=== PATIENT | male | born 1975 | race Caucasian/White ===

== ENCOUNTER 2018-08-21 09:45 | Inpatient (IN) | payer MEDICARE, MEDICAID, SELFPAY ==
[2018-08-21] VITALS (11 sets, daily range): BP systolic 115–139; BP diastolic 68–85; PULSE 89–133; RESP 15–31; TEMP 36–39.4; O2SAT 91–98; BMI 31.9; BMI 27.6
[2018-08-21] MEDS: Ipratropium/Albuterol Sulfate 3 ML AMPUL.NEB INHALATION ×2 (10:14→19:10)
--- NOTE | 2018-08-21 10:40 | RAD_ITS ---
STUDY: X-RAY CHEST REASON FOR EXAM: Male, 42 years old. Cough. History of asthma and non-Hodgkin's lymphoma. TECHNIQUE: AP and lateral views of the chest. COMPARISON: Comparison is made with prior chest radiograph dated June 27, 2016. FINDINGS: A left-sided portacatheter is seen. The tip is at the junction of the superior vena cava and left brachiocephalic vein. Surgical clips are seen in the right axillary region. Stable mild elevation of the right hemidiaphragm. The lungs are clear and expanded. There is no demonstrated pleural abnormality. Normal size heart. Normal mediastinum and chu. Normal visualized pulmonary arteries. Normal visualized aortic arch and descending thoracic aorta. Normal visualized thoracic spine. Normal visualized ribs, clavicles, and shoulders. There is no demonstrated abnormality of the visualized soft tissue structures of the upper abdomen. RAD/Chest PA and Lateral IMPRESSION: No acute abnormality is seen. There has been no change as compared to prior study. Electronically Signed: Norbert Guardado MD at 11:19 EST Tel [phone], Service support ,
[2018-08-21] MEDS: Acetaminophen 500 MG Tablet 1000 MG PO (10:41)
--- NOTE | 2018-08-21 11:22 | ED.RN ---
PT AMBULATED WITH PULSE OX, PULSE OX ON ROOM AIR WAS 89%, HEART RATE 155.
--- NOTE | 2018-08-21 12:12 | EKG12_ITS ---
Test Reason : COUGH Blood Pressure : / mmHG Vent. Rate : 099 BPM Atrial Rate : 099 BPM P-R Int : 154 ms QRS Dur : 088 ms QT Int : 348 ms P-R-T Axes : 027 024 003 degrees QTc Int : 446 ms Normal sinus rhythm Nonspecific T wave abnormality Confirmed by SEAN ONEILL, VKIAS ([id number]), commercial production editor GENESIS CONDE ([id number]) on 08/23/2018 2:24:05 PM Referred By: DC Confirmed By:VIKAS ESTRADA MD
--- NOTE | 2018-08-21 12:15 | ED.DCSUM_ITS ---
- ER Visit Summary Date of Service: 08/21/18 Chief Complaint: Cough History of Present Illness: The patient is a 42 M with a cough for 2 days. It is dry. He also reports fever, myalgias, and flulike symptoms. His family member had pneumonia. He has a history of diabetes and hypertension. Remote history of non-Hodgkin's lymphoma. He does use e-cigarettes. Physical Examination: Febrile 102.9. Heart rate 133 and respiratory rate 15. Blood pressure normal. 94% on room air. The patient appears unwell but not toxic or in distress. Alert and oriented. HEENT exam unremarkable. Heart regular. Lungs clear bilaterally. Abdomen soft. Skin appears normal. Test Results: Chest x-ray was unremarkable. Emergency Department Course and Treatment: Patient received a breathing treatment. His flu test was negative. On reevaluation, he is not any better. He is still febrile. Heart rate 102 and respiratory rate 21. He ambulated and was 89% on room air. His heart rate jumped up to 155. I do not believe the patient will be appropriate for outpatient management. I added on blood work, EKG. We will treat with Solu-Medrol. He is requiring nasal cannula oxygen. Will speak with the hospitalist for admission. White count 16.5. Potassium 3.4 and glucose 344. Troponin normal. Lactate pending. Treatment Plan: As above Disposition: Admission Impression: 1. Bronchitis 2. Hypoxia This note was generated with [employer] dictation software. It may contain incorrect words, spelling, and punctuation that were not noted in review of the chart prior to signing ED Disposition - Plan for ED Patient: Chief Complaint: Cough Referrals: Dagoberto Zarco DO [Primary Care Provider] -
[2018-08-21] MEDS: 0.9% Normal Saline 1,000 ML 999 ML IV ×2 (12:22→14:28)
[2018-08-21] MEDS: MethylPREDNISolone 125 MG/2 ML Vial IV (12:22)
[2018-08-21 12:29] LABS: Absolute Lymphocyte Count 1.41 X10^3/ul (0.83-4.51); Absolute Neutrophil Count 13.7 X10^3/uL (2.0-7.7); Basophil# 0.03 X10^3/uL; Basophil% 0.2 % (0-1); Eosinophil# 0.01 X10^3/uL; Eosinophils% 0.1 % (0-5); Hematocrit 44.4 % (40-54); Lymphocyte # 1.41 X10^3/ul (4.0); Lymphocyte % 8.6 % (19-41); Mean Corp Hgb Conc 33.8 g/gl (32-36); Mean Corpuscular Hgb 28.7 pg (27.0-32.0); Mean Corpuscular Volume 85.1 fL (80-94); Mean Platelet Vol. 11.2 fl (6.2-12.0); Monocyte# 1.28 X10^3/uL; Monocyte% 7.8 % (0-10); Neutrophil % 83.1 % (47-70); Platelet Count 226 K/mm3 (150-450); RBC Distribution Width CV 12.9 % (11.6-14.6); RBC Distribution Width SD 40.4 fl (35.1-43.9); Red Blood Count 5.22 M/mm3 (4.6-6.2); White Blood Count 16.5 K/mm3 (4.4-11.0)
[2018-08-21 12:30] LABS: POSITIVE COUNT NO; POSITIVE DIFFERENTIAL NO; POSITIVE MORPHOLOGY NO
[2018-08-21 12:31] LABS: Bedside Glucose 335 mg/dL (70-110)
[2018-08-21 12:43] LABS: Anion Gap 13 (5-15); BUN 12 mg/dL (7-18); BUN/Creat Ratio 9.4 RATIO (10-20); Calcium,Total 8.9 mg/dL (8.5-10.1); Chloride 99 mmol/L (98-107); Creatinine, Serum 1.27 mg/dL (0.70-1.30); EST Glomerular Filtration Rate 66 mL/min (>60); Est Glom Filt Rate - Afr Amer 80 mL/min (>60); Estimated Creatinine Clearance 75.77 ml/min; Glucose 344 mg/dL (74-106); Potassium 3.4 mmol/L (3.5-5.1); Sodium Level 136 mmol/L (136-145)
--- NOTE | 2018-08-21 13:22 | PCM.HP.STD ---
Problem List (1) Anxiety Status: Chronic (2) Depression Status: Chronic (3) Asthma Status: Chronic (4) Type 2 diabetes mellitus Status: Chronic (5) History of follicular lymphoma Status: Chronic History of Present Illness Date of Admission: 08/21/18 Chief Complaint: Body aches, malaise, cough, subjective fever and shortness of breath. The patient is a 42 year old M with past medical history as mentioned above presented to the emergency room because of body aches, cough and shortness of breath. His symptoms started 2 days ago with cough with minimal sputum, associated with mild shortness of breath upon ambulation as well as sore throat, body aches and muscle aches and also, he reported subjective fever. He mentioned that his father was was discharged from the hospital last week and he was admitted for pneumonia. He reported diarrhea last night, 3 times, loose stool without blood. He denied abdominal pain, nausea or vomiting. He denies urinary symptoms. He had a history of type 2 diabetes mellitus and according to the patient, his sugar has been in the 300-400 range for a long time and it is seemed to be uncontrolled. He had a history of stage IV follicular lymphoma/non-Hodgkin's lymphoma diagnosed back in February,, status post chemotherapy and he is in remission. History of anxiety and depression, has been on clonazepam and remain out for a long time. In the emergency vomit, patient was febrile, tachycardic, blood pressure was stable, pulse ox was 91% on room air. His routine blood work was remarkable for leukocytosis, potassium of 3.4 and blood glucose of 344. His EKG revealed sinus tachycardia, normal NM interval, normal QRS, no evidence of ischemic changes or cardiac arrhythmias. Troponin was negative. Lactic acid was 2.1. Chest x-ray showed no acute infiltrate, consolidation or effusion. He is being admitted for sepsis probably secondary to viral bronchitis, complicated by hypoxia and also he has type 2 diabetes mellitus which seems to be uncontrolled. Past Medical History Past Medical History (Chronic Problems): Chronic Problems (Last Reviewed 06/13/18 @ 13:03 by Hattie Simeon) Anxiety (Chronic) Depression (Chronic) Asthma (Chronic) Type 2 diabetes mellitus (Chronic) History of follicular lymphoma (Chronic) Medical History: Medical History (Last Reviewed 06/13/18 @ 13:03 by Hattie Simeon) Anxiety F41.9 Arthritis M19.90 Depression F32.9 Diabetes mellitus E11.9 Follicular lymphoma C82.90 Headache R51 Hearing problem H91.90 Hyperlipidemia E78.5 Kidney stones N20.0 Right axilla lymph node removal Sleep apnea G47.30 Hypertension I10 Allergies No Known Allergies Allergy (Verified 08/21/18 09:45) Home Medications: Ambulatory Orders Medication Instructions Recorded Clonazepam 0.5 mg PO BID PRN 08/21/18 Mirtazapine [Remeron] 15 mg PO QHS 08/21/18 glyBURIDE [Micronase] 10 mg PO DAILY@0800 08/21/18 Surgical History: Surgical History (Last Reviewed 06/13/18 @ 13:03 by Hattie Simeon) History of lithotripsy Z98.890 Surgical History: no surgical history Psychiatric History: No pertinent psych hx Lives: Spouse/ Significant Other Smoking Status: Current every day smoker Tobacco Use: - - He smokes electric cigarettes. Alcohol: Rare Drugs: None - *Family History Maternal Family History: Family History (Last Reviewed 06/13/18 @ 13:03 by Hattie Simeon) Mother Heart disease Hypertension Asthma Arthritis Father Prostate cancer Hypertension Hyperlipidemia Diabetes COPD (chronic obstructive pulmonary disease) Asthma Arthritis Review of Systems Constitutional: Reports: Anorexia, Fever, Malaise, Weakness. Denies: Chills Eyes: Denies: Blurred vision, Double vision, Drainage, Redness HEENT: Reports: Nasal Congestion, Sore Throat. Denies: Difficulty Hearing, Ear Pain, Eye Pain Cardiovascular: Denies: Chest Pain, Chest Pressure, Chest Tightness, Light Headedness, Syncope Respiratory: Reports: Cough, Shortness of breath at rest, Wheezing. Denies: Pleuritic Pain Gastrointestinal: Reports: Diarrhea. Denies: Abdominal Pain, Constipation, Nausea, Vomiting Genitourinary: Denies: Dysuria, Frequency, Hematuria Musculoskeletal: Denies: Arm Pain, Back Pain, Foot Pain Skin: Denies: Dryness, Rash Neurological: Denies: Balance problems, Double vision, Change in Speech, Slurred speech, Confusion, Headaches, Incoordination, Numbness Psychiatric: Reports: Anxiety, Depression Endocrine: Denies: Change in Body Habitus, Polydipsia VTE Information - Inpt Only VTE Present on Admission: No VTE Mechan Device Prophylaxis: None VTE Pharm Prophylaxis ordered?: No - Physical Exam General: Alert, Oriented x3, Cooperative, No apparent distress HEENT: Atraumatic, PERRLA, EOMI, Normocephalic Oral: Moist Mucosa, No Gingival or Mucosal Lesions/ Ulcerations Neck: Supple, No JVD, Negative Carotid Bruits, Trachea Midline, Thyroid Normal Size and Texture Lungs: No wheeze, No rales, Diminished, Rhonchi, Short of Breath, - - Decreased breath sounds bilateral, scattered rhonchi. Cardiovascular: Regular rate, Regular Rhythm, Normal S1, Normal S2, No murmurs, PMI Normal, Tachycardic Abdomen: Bowel Sounds Present, Soft, Non Tender, Non-Distended, No Hepato-splenomegaly Extremities: No clubbing, No cyanosis, No edema Skin: No rashes, No breakdown Lymphatic: No Cervical, Supraclavicular, or Inguinal Adenopathy Neurological: Cranial nerves II-XII grossly intact, Motor Exam 5/5 strength throughout Psych/Mental Status: Normal Affect, Appropriate, Alert and oriented to time, place, person, mood and affect Vital Signs Temp Pulse Resp BP Pulse Ox 98.9 F 110 H 23 H 115/84 H 95 08/21/18 13:16 08/21/18 13:16 08/21/18 13:16 08/21/18 13:16 08/21/18 13:16 Oxygen Flow Rate (L/min) 2 Oxygen Delivery Method Nasal Cannula Weight: 216 lb 4.375 oz Body Mass Index (BMI) 31.9 Finger Stick Blood Glucose 335 Microbiology Past 72 Hours 08/21/18 10:15 Influenza Types A,B Direct FA (JULY) - Final Mucosa - Nose Laboratory Tests Past 24 Hrs 08/21/18 08/21/18 08/21/18 10:10 10:10 10:10 WBC 16.5 H RBC 5.22 Hgb 15.0 Hct 44.4 MCV 85.1 MCH 28.7 MCHC 33.8 RDW 12.9 RDW Differential 40.4 Plt Count 226 MPV 11.2 Immature Gran % (Auto) 0.200 Neut % (Auto) 83.1 H Lymph % (Auto) 8.6 L [place] % (Auto) 7.8 Eos % (Auto) 0.1 Baso % (Auto) 0.2 Absolute Neuts (auto) 13.7 H Absolute Lymphs (auto) 1.41 Total Counted Not Reportable Sodium 136 Potassium 3.4 L Chloride 99 Carbon Dioxide 24.0 Anion Gap 13 BUN 12 Creatinine 1.27 Estim Creat Clear Calc 75.77 Est GFR (MDRD) Af Amer 80 Est GFR (MDRD) Non-Af 66 BUN/Creatinine Ratio 9.4 L Glucose 344 H Lactic Acid Pending Calcium 8.9 Troponin I < 0.015 POC Glucose 08/21/18 10:58 POC Glucose 335 H Clinical Impression(s) from Imaging Studies Chest X-Ray 08/21/18 10:40 IMPRESSION: No acute abnormality is seen. There has been no change as compared to prior study. Electronically Signed: Norbert Guardado MD at 11:19 EST Tel [phone], Service support , Assessment/Plan This is a 42 years old male patient presented to the emergency room because of 2 days history of body aches, cough, shortness of breath, sore throat and subjective fever, found to have sepsis likely due to viral bronchitis, complicated by hypoxia, also found to have mild hypokalemia and he has history of type 2 diabetes mellitus which is uncontrolled. #1 sepsis/viral bronchitis: Chest x-ray reviewed, no acute infiltrate. Patient is febrile, tachycardic and hypoxic, lactic acid 2.1. EKG reviewed, revealed no acute ischemic findings. He received 1 dose of IV doxycycline in the ER. Plan: Admit to [facility] floor, IV fluids, decongestants, bronchodilators, respiratory panel for viruses, pneumococcal and Legionella antigen, blood culture, sputum culture, urine culture, repeat chest x-ray tomorrow morning, incentive spirometer. At this time, no indication to continue IV antibiotics. His symptoms are likely due to viral infection. #2 hypoxia: Secondary to above mentioned history of asthma. He does have a history of childhood asthma. In the ED, pulse ox was 91% on room air, patient was mildly dyspneic and tachypneic. Plan as above, bronchodilators, incentive spirometer, ambulate. #3 mild hypokalemia: Replace potassium with oral potassium chloride, repeat BMP tomorrow morning. #4 type 2 diabetes mellitus, uncontrolled: Patient reports that his sugar has been in the range of 300-400 and that she will for him. Admission glucose is 344. Plan: Accu-Cheks every 6 hours, sliding scale, hemoglobin A1c, continue glyburide. #5 history of stage IV follicular lymphoma/non-Hodgkin's lymphoma: Status post chemotherapy, this was diagnosed back in February,, in remission. He has been following up with Dr. Gallagher as outpatient. #6 asthma: DuoNeb every 6 hours, albuterol as needed, incentive spirometer, decongestants, oxygen by nasal cannula to keep O2 saturation more than 92%. #7 anxiety/depression: Continue clonazepam and Remeron. #8 DVT prophylaxis: Low-risk patient, no prophylaxis indicated, ambulate. This note was generated with [employer] dictation software. It may contain incorrect words, spelling, and punctuation that were not noted in checking the note before signing. Code Visit Inpatient E&M: 79344 Init Hosp L3
[2018-08-21 13:32] LABS: Lactic Acid 2.1 mmol/L (0.4-2.0)
[2018-08-21] MEDS: 0.9% Normal Saline 1,000 ML 100 ML IV (14:28)
[2018-08-21 14:52] LABS: Hemoglobin A1c 11.1 % (4.2-6.3)
[2018-08-21 15:30] LABS: Bedside Glucose 317 mg/dL (70-110)
[2018-08-21 15:57] LABS: Bacteria 0 SEEN /hpf (None Seen); Mucous, Urine 0 SEEN /hpf (<or=2+); Squamous Epithelial Cells - UA 0 SEEN /hpf (0-5); White Blood Cells 0 SEEN /hpf (0-5)
[2018-08-21] MEDS: Insulin Lispro 100 UNIT/ML INSULN.PEN SC ×2 (15:57→23:40)
[2018-08-21 16:25] LABS: Lactic Acid 1.5 mmol/L (0.4-2.0)
[2018-08-21 16:28] LABS: Color, Urine Yellow (Yellow); Glucose, Dipstick 1000 mg/dl (Normal); Leukocyte Esterase-Dipstick Negative /ul (Negative); Nitrite-Dipstick Negative (Negative); Occult Blood-Urine 150 /ul (Negative); Protein-Dipstick 30 mg/dl (Negative); Specific Gravity, Urine 1.015 (1.002-1.030); Urine Bilirubin Dipstick Negative (Negative); Urine Clarity Clear (Clear); Urine Urobilinogen Normal (Normal)
[2018-08-21 16:30] LABS: Ketone-Dipstick 150 mg/dl (Negative)
[2018-08-21 16:50] LABS: Red Blood Cells-Urine 0-5 SEEN /hpf (0-5)
[2018-08-21 17:01] LABS: Reflex Lactate? Y
[2018-08-21] MEDS: Glucerna Shake 120 ML LIQUID PO ×2 (17:50→21:12)
[2018-08-21 17:59] LABS: Lactic Acid 1.4 mmol/L (0.4-2.0)
[2018-08-21] MEDS: Mirtazapine 15 MG Tablet PO (21:11)
[2018-08-21 21:25] LABS: Bedside Glucose 477 mg/dL (70-110)
[2018-08-21 23:41] LABS: Bedside Glucose 411 mg/dL (70-110)
[2018-08-21] MEDS: clonazePAM 0.5 MG Tablet PO (23:41)
[2018-08-22] VITALS (12 sets, daily range): BP systolic 97–122; BP diastolic 53–72; PULSE 80–112; RESP 14–20; TEMP 36.4–36.9; O2SAT 89–97
[2018-08-22] MEDS: Ipratropium/Albuterol Sulfate 3 ML AMPUL.NEB INHALATION ×4 (01:08→19:05)
[2018-08-22] MEDS: 0.9% Normal Saline 1,000 ML 100 ML IV (02:30)
--- NOTE | 2018-08-22 05:55 | RAD_ITS ---
STUDY: X-RAY CHEST REASON FOR EXAM: Male, 42 years old. Cough. TECHNIQUE: PA and lateral views of the chest. COMPARISON: Comparison is made with prior study dated August 21, 2018. FINDINGS: Surgical clips are seen in the right axillary region. A left-sided portacatheter is seen with the tip at the junction of the superior vena cava and left brachiocephalic vein. Stable elevation of the right hemidiaphragm. There is no demonstrated pleural abnormality. Normal size heart. Normal mediastinum and chu. Normal visualized pulmonary arteries. Normal visualized aortic arch and descending thoracic aorta. There are degenerative changes of the visualized thoracic spine. Normal visualized ribs, clavicles, and shoulders. There is no demonstrated abnormality of the visualized soft tissue structures of the upper abdomen. RAD/Chest PA and Lateral IMPRESSION: Stable examination. Electronically Signed: Norbert Guardado MD at 10:42 EST Tel [phone], Service support ,
[2018-08-22] MEDS: Insulin Lispro 100 UNIT/ML INSULN.PEN SC ×4 (06:08→21:55)
[2018-08-22 06:25] LABS: Anion Gap 17 (5-15); BUN 17 mg/dL (7-18); BUN/Creat Ratio 16.3 RATIO (10-20); Calcium,Total 9.1 mg/dL (8.5-10.1); Chloride 106 mmol/L (98-107); Creatinine, Serum 1.04 mg/dL (0.70-1.30); EST Glomerular Filtration Rate 83 mL/min (>60); Est Glom Filt Rate - Afr Amer 100 mL/min (>60); Estimated Creatinine Clearance 92.53 ml/min; Glucose 330 mg/dL (74-106); Potassium 5.1 mmol/L (3.5-5.1); Sodium Level 138 mmol/L (136-145)
[2018-08-22 06:35] LABS: Bedside Glucose 322 mg/dL (70-110)
[2018-08-22 07:15] LABS: Absolute Lymphocyte Count 1.05 X10^3/ul (0.83-4.51); Absolute Neutrophil Count 12.2 X10^3/uL (2.0-7.7); Basophil# 0.01 X10^3/uL; Basophil% 0.1 % (0-1); Hemoglobin 13.5 g/dl (13.0-16.5); Lymphocyte # 1.05 X10^3/ul (4.0); Lymphocyte % 7.5 % (19-41); Mean Corp Hgb Conc 32.9 g/gl (32-36); Mean Corpuscular Hgb 28.8 pg (27.0-32.0); Mean Corpuscular Volume 87.4 fL (80-94); Mean Platelet Vol. 11.4 fl (6.2-12.0); Neutrophil # 12.23 X10^3/uL (2.7-7.7); Neutrophil % 87.2 % (47-70); Platelet Count 210 K/mm3 (150-450); RBC Distribution Width CV 13.1 % (11.6-14.6); RBC Distribution Width SD 41.6 fl (35.1-43.9); Red Blood Count 4.69 M/mm3 (4.6-6.2)
[2018-08-22 07:20] LABS: POSITIVE COUNT NO; POSITIVE DIFFERENTIAL NO; POSITIVE MORPHOLOGY NO
[2018-08-22] MEDS: Glucerna Shake 120 ML LIQUID PO ×4 (08:37→21:55)
--- NOTE | 2018-08-22 09:09 | PCM.PROGNOTE ---
Subjective: Chief complaint: Follow-up after admission for sepsis secondary to viral bronchitis, found to have hypoxia and mild hypokalemia. Patient seen and examined. No acute events overnight. He reported improvement of his shortness of breath, still having dry cough. He has no fever overnight. He has no more diarrhea. Heart rate has been around 100, blood pressure stable, pulse ox is 97% on 2 L. - Physical Exam General: Alert, Oriented x3, Cooperative, No apparent distress HEENT: Atraumatic, PERRLA, EOMI, Normocephalic Oral: Moist Mucosa, No Gingival or Mucosal Lesions/ Ulcerations Neck: Supple, No JVD, Negative Carotid Bruits, Trachea Midline, Thyroid Normal Size and Texture Lungs: Clear to auscultation, No rhonchi, No wheeze, No rales, Diminished Cardiovascular: Regular rate, Regular Rhythm, Normal S1, Normal S2, PMI Normal, Tachycardic Abdomen: Bowel Sounds Present, Soft, Non Tender, Non-Distended, No Hepato-splenomegaly Extremities: No clubbing, No cyanosis, No edema Skin: No rashes, No breakdown Lymphatic: No Cervical, Supraclavicular, or Inguinal Adenopathy Neurological: Cranial nerves II-XII grossly intact, Neuro grossly intact Psych/Mental Status: Normal Affect, Appropriate, Alert and oriented to time, place, person, mood and affect Vital Signs Temp Pulse Resp BP Pulse Ox 97.5 F L 112 H 18 122/72 H 95 08/22/18 03:34 08/22/18 08:00 08/22/18 07:25 08/22/18 03:34 08/22/18 07:25 Oxygen Flow Rate (L/min) 2 Oxygen Delivery Method Nasal Cannula Weight: 187 lb 2.759 oz Body Mass Index (BMI) 27.6 Finger Stick Blood Glucose 335 Intake and Output for Last 24 Hours 08/20/18 08/21/18 08/22/18 23:59 23:59 23:59 Intake Total 1824 / 1824 2079 Output Total 650 / 650 Balance 1174 / 1174 2079 Microbiology Past 72 Hours 08/21/18 17:55 Gram Stain - Final Sputum, Expectorated/Coughed 08/21/18 17:55 C. difficile DNA Amplification - Final Stool 08/21/18 15:50 Streptococcus pneumoniae Antigen (M - Final Urine, Clean Catch 08/21/18 15:50 Legionella Antigen - Final Urine, Clean Catch 08/21/18 10:15 Influenza Types A,B Direct FA (JULY) - Final Mucosa - Nose Laboratory Tests Past 24 Hrs 08/21/18 08/21/18 08/21/18 10:10 10:10 10:10 WBC 16.5 H RBC 5.22 Hgb 15.0 Hct 44.4 MCV 85.1 MCH 28.7 MCHC 33.8 RDW 12.9 RDW Differential 40.4 Plt Count 226 MPV 11.2 Immature Gran % (Auto) 0.200 Neut % (Auto) 83.1 H Lymph % (Auto) 8.6 L [place] % (Auto) 7.8 Eos % (Auto) 0.1 Baso % (Auto) 0.2 Absolute Neuts (auto) 13.7 H Absolute Lymphs (auto) 1.41 Total Counted Not Reportable Sodium 136 Potassium 3.4 L Chloride 99 Carbon Dioxide 24.0 Anion Gap 13 BUN 12 Creatinine 1.27 Estim Creat Clear Calc 75.77 Est GFR (MDRD) Af Amer 80 Est GFR (MDRD) Non-Af 66 BUN/Creatinine Ratio 9.4 L Glucose 344 H Hemoglobin A1c Lactic Acid 2.1 H Calcium 8.9 Troponin I < 0.015 Urine Color Urine Clarity Urine pH Ur Specific [place] Urine Protein Urine Glucose (UA) Urine Ketones Urine Occult Blood Urine Nitrite Urine Bilirubin Urine Urobilinogen Ur Leukocyte Esterase Urine RBC Urine WBC Ur Squamous Epith Cells Urine Bacteria Urine Mucus 08/21/18 08/21/18 08/21/18 10:10 15:45 15:50 WBC RBC Hgb Hct MCV MCH MCHC RDW RDW Differential Plt Count MPV Immature Gran % (Auto) Neut % (Auto) Lymph % (Auto) [place] % (Auto) Eos % (Auto) Baso % (Auto) Absolute Neuts (auto) Absolute Lymphs (auto) Total Counted Sodium Potassium Chloride Carbon Dioxide Anion Gap BUN Creatinine Estim Creat Clear Calc Est GFR (MDRD) Af Amer Est GFR (MDRD) Non-Af BUN/Creatinine Ratio Glucose Hemoglobin A1c 11.1 H Lactic Acid 1.5 Calcium Troponin I Urine Color Yellow Urine Clarity Clear Urine pH 6.0 Ur Specific [place] 1.015 Urine Protein 30 H Urine Glucose (UA) 1000 H Urine Ketones 150 H Urine Occult Blood 150 H Urine Nitrite Negative Urine Bilirubin Negative Urine Urobilinogen Normal Ur Leukocyte Esterase Negative Urine RBC 0-5 SEEN Urine WBC 0 SEEN Ur Squamous Epith Cells 0 SEEN Urine Bacteria 0 SEEN Urine Mucus 0 SEEN 08/21/18 08/22/18 08/22/18 17:21 05:30 05:30 WBC 14.0 H RBC 4.69 Hgb 13.5 Hct 41.0 MCV 87.4 MCH 28.8 MCHC 32.9 RDW 13.1 RDW Differential 41.6 Plt Count 210 MPV 11.4 Immature Gran % (Auto) 0.200 Neut % (Auto) 87.2 H Lymph % (Auto) 7.5 L [place] % (Auto) 5.0 Eos % (Auto) 0.0 Baso % (Auto) 0.1 Absolute Neuts (auto) 12.2 H Absolute Lymphs (auto) 1.05 Total Counted Not Reportable Sodium 138 Potassium 5.1 Chloride 106 Carbon Dioxide 15.0 L Anion Gap 17 H BUN 17 Creatinine 1.04 Estim Creat Clear Calc 92.53 Est GFR (MDRD) Af Amer 100 Est GFR (MDRD) Non-Af 83 BUN/Creatinine Ratio 16.3 Glucose 330 H Hemoglobin A1c Lactic Acid 1.4 Calcium 9.1 Troponin I Urine Color Urine Clarity Urine pH Ur Specific [place] Urine Protein Urine Glucose (UA) Urine Ketones Urine Occult Blood Urine Nitrite Urine Bilirubin Urine Urobilinogen Ur Leukocyte Esterase Urine RBC Urine WBC Ur Squamous Epith Cells Urine Bacteria Urine Mucus POC Glucose 08/22/18 08/21/18 08/21/18 06:08 23:27 21:15 POC Glucose 322 H 411 H 477 H* 08/21/18 08/21/18 15:24 10:58 POC Glucose 317 H 335 H Medical Necessity - Tobacco Use Smoking Status: Current every day smoker Tobacco Use: - Assessment/Plan This is a 42 years old male patient presented to the emergency room because of 2 days history of body aches, cough, shortness of breath, sore throat and subjective fever, found to have sepsis likely due to viral bronchitis, complicated by hypoxia, also found to have mild hypokalemia and he has history of type 2 diabetes mellitus which is uncontrolled. #1 sepsis/viral bronchitis: He is on IV fluids, analgesics and bronchodilators. Symptoms improved, remained afebrile overnight. Repeat chest x-ray showed no acute infiltrate, consolidation or effusion, pending official report. His white blood cell count is trending down, lactic acid is back to normal. Blood, urine and sputum cultures are pending. Nasal swab for influenza a and B were negative. Pneumococcal and Legionella antigen were negative. Respiratory panel for viruses is pending. Stool for C. difficile negative for C. difficile. Plan: Continue same treatment, awaiting respiratory panel for viruses and chest x-ray report, DC IV fluids, ambulate, encourage incentive spirometer, wean off oxygen as tolerated, anticipate discharge home tomorrow. #2 hypoxia: Secondary to above. He does have a history of childhood asthma. Today, symptoms improved, pulse ox is 97% on 2 L. Plan as above. #3 mild hypokalemia: Potassium replaced and corrected. #4 type 2 diabetes mellitus, uncontrolled: Blood sugar is uncontrolled, has been in the range of 300-400. Hemoglobin A1c is 11.1. Plan: Start Lantus insulin daily, continue glyburide, diabetic education. Patient will need to go on insulin because of uncontrolled diabetes. #5 history of stage IV follicular lymphoma/non-Hodgkin's lymphoma: Status post chemotherapy, this was diagnosed back in February,, in remission. He has been following up with Dr. Gallagher as outpatient. #6 asthma: Plan as above, symptoms are improving. Wean off oxygen as tolerated. #7 anxiety/depression: Continue clonazepam and Remeron. #8 DVT prophylaxis: Low-risk patient, no prophylaxis indicated, ambulate. This note was generated with [employer] dictation software. It may contain incorrect words, spelling, and punctuation that were not noted in checking the note before signing. Code Visit Inpatient E&M: 47439 Subs Hosp L2
--- NOTE | 2018-08-22 10:50 | CASEMGMT ---
KARO KERNS Assessment Note Presentation: body aches, shortness of breath. Sepsis, Viral bronchitis. Hx of diabetes, HA1C 11.1, will have diabetic teaching. PCP: Dr. Dagoberto Zarco [facility] Prescription coverage: Yes LNOK: Father, Shon Escobedo; pt has sig other, Betty Campos Living Arrangements: Lives independently with S.O. States he does not need assistance with ADL's. Pt drives, or S.O. drives. -spoke with pt re: diabetic management. Pt states he has BS machine but is not consistent with daily BS checks. Sees Dr. Zarco for diabetic mgmt. RN CM reinforced importance of diabetic management and f/u with physician on regular basis. Pt does not have keno writer. KARO KERNS let pt know Corina is [employer] BUILDER @ [facility]. Pt states he only wishes to see Dr. Zarco for now. Denies need for any supplies on dc, states supplies are covered. Pt is receiving diabetic teaching and international trade analyst following pt in hospital. DME: none. DC PLAN: Home with f/u with PCP. Sharri HOOVERN RN ACM
[2018-08-22 11:31] LABS: Bedside Glucose 394 mg/dL (70-110)
[2018-08-22 16:50] LABS: Bedside Glucose 347 mg/dL (70-110)
[2018-08-22] MEDS: Acetaminophen 325 MG Tablet 650 MG PO (20:16)
[2018-08-22] MEDS: Mirtazapine 15 MG Tablet PO (21:55)
[2018-08-22] MEDS: clonazePAM 0.5 MG Tablet PO (21:55)
[2018-08-22 21:58] LABS: Bedside Glucose 345 mg/dL (70-110)
[2018-08-23 01:30] VITALS: PULSE 85; RESP 18
[2018-08-23] MEDS: Ipratropium/Albuterol Sulfate 3 ML AMPUL.NEB INHALATION ×2 (01:30→06:55)
[2018-08-23 03:30] VITALS: BP 102/62; PULSE 84; RESP 16; TEMP 37; O2SAT 96
--- NOTE | 2018-08-23 04:01 | NURSING ---
called resp therapy for breathing tx and assistance with flutter valve per pt request. see times of breathing treatments. lungs are clear throughout.
[2018-08-23] MEDS: Albuterol 2.5 MG/3 ML VIAL.NEB. INHALATION (04:46)
[2018-08-23 04:48] VITALS: PULSE 85; RESP 18
[2018-08-23] MEDS: Insulin Lispro 100 UNIT/ML INSULN.PEN SC ×2 (06:32→11:32)
[2018-08-23 06:51] LABS: Absolute Lymphocyte Count 2.07 X10^3/ul (0.83-4.51); Absolute Neutrophil Count 7.9 X10^3/uL (2.0-7.7); Basophil# 0.02 X10^3/uL; Basophil% 0.2 % (0-1); Eosinophil# 0.04 X10^3/uL; Eosinophils% 0.4 % (0-5); Hematocrit 38.9 % (40-54); Hemoglobin 12.7 g/dl (13.0-16.5); Lymphocyte # 2.07 X10^3/ul (4.0); Lymphocyte % 19.1 % (19-41); Mean Corp Hgb Conc 32.6 g/gl (32-36); Mean Corpuscular Hgb 28.3 pg (27.0-32.0); Mean Corpuscular Volume 86.8 fL (80-94); Mean Platelet Vol. 11.2 fl (6.2-12.0); Monocyte# 0.77 X10^3/uL; Monocyte% 7.1 % (0-10); Neutrophil # 7.89 X10^3/uL (2.7-7.7); Platelet Count 213 K/mm3 (150-450); RBC Distribution Width CV 13.3 % (11.6-14.6); RBC Distribution Width SD 42.6 fl (35.1-43.9); Red Blood Count 4.48 M/mm3 (4.6-6.2); White Blood Count 10.8 K/mm3 (4.4-11.0)
[2018-08-23 06:52] LABS: POSITIVE COUNT NO; POSITIVE DIFFERENTIAL NO; POSITIVE MORPHOLOGY NO
[2018-08-23 06:55] VITALS: PULSE 82; RESP 18; O2SAT 93
[2018-08-23 06:56] LABS: Bedside Glucose 294 mg/dL (70-110)
[2018-08-23 09:30] VITALS: BP 125/78; PULSE 100; RESP 16; TEMP 37.1; O2SAT 98
--- NOTE | 2018-08-23 09:30 | DCINST_ITS ---
- Discharge Diagnoses Current Active Problems: Current Active and Chronic Problems (Last Reviewed 06/13/18 @ 13:03 by Hattie Simeon) Anxiety (Chronic) Depression (Chronic) Asthma (Chronic) Type 2 diabetes mellitus (Chronic) You will use the following diet at home:: Calorie/Carbohydrate Controlled (specify 1200, 1400, etc) - 1800 ananda Your food should be the consistency of: Regular Discharge Activity: Return to Normal Activity Weight Bearing Status: Full weight bearing Call your doctor if you observe: Fever of 101 or Higher, Shortness of breath, Dizziness, Fainting spells, Chest pain, Increased palpitations (irregular heartbeat), Uncontrolled pain Instructions: Hypoglycemia (Low Blood Sugar), Hyperglycemia (High Blood Sugar), Using Injected Insulin, Using a Blood Sugar Log, How to Check Your Blood Sugar Allergies/Adverse Reactions: Allergies No Known Allergies Allergy (Verified 08/21/18 09:45) Medications to take at Discharge Clonazepam 0.5 mg PO BID PRN 08/21/18 Mirtazapine [Remeron] 15 mg PO QHS 08/21/18 Oxycodone [Oxyfast] 10 mg PO DAILY PRN PRN 08/21/18 glyBURIDE [Micronase] 10 mg PO BID 08/21/18 Guaifenesin [Robitussin] 10 ml PO Q6H PRN PRN 5 Days udc 08/23/18 Insulin Glargine [Lantus SoloStar Pen] 10 units SC DAILY #2 pen 08/23/18 The following prescriptions were given: Guaifenesin [Robitussin] 10 ml PO Q6H PRN PRN 5 Days udc PRN Reason: COUGH Insulin Glargine [Lantus SoloStar Pen] 10 units SC DAILY #2 pen Primary Care Physician: Dagoberto Zarco DO [Primary Care Provider] - Please follow up with your Primary Care Physician in: 1 week. Test Results: Test results from this visit will be discussed in further detail at your follow- up appointment, if applicable.
[2018-08-23] MEDS: guaiFENesin 10 ML UDC (200MG/10ML) PO (11:51)
[2018-08-23 12:00] LABS: Bedside Glucose 349 mg/dL (70-110)
--- NOTE | 2018-08-23 12:07 | PCM.DC.SUM ---
Discharge Date and Diagnosis Date of Admission: 08/21/18 Date of Discharge: 08/23/18 - Primary Discharge Diagnosis #1 viral bronchitis/sepsis. #2 hypoxia. #3 uncontrolled type 2 diabetes mellitus. #4 mild hypokalemia. - Secondary Discharge Diagnosis Chronic Problems (Last Reviewed 06/13/18 @ 13:03 by Hattie Simeon) Anxiety (Chronic) Depression (Chronic) Asthma (Chronic) Type 2 diabetes mellitus (Chronic) History of follicular lymphoma (Chronic) Hospital Course and Treatment Imaging Results: Clinical Impression(s) from Imaging Studies Chest X-Ray 08/21/18 10:40 IMPRESSION: No acute abnormality is seen. There has been no change as compared to prior study. Electronically Signed: Norbert Guardado MD at 11:19 EST Tel [phone], Service support , Chest X-Ray 08/22/18 05:55 IMPRESSION: Stable examination. Electronically Signed: Norbert Guardado MD at 10:42 EST Tel [phone], Service support , Operations: None Procedures: None Summary of Care Provided: Patient seen and examined on the day of discharge and appeared to be stable to be discharged home. Symptoms improved, continued to complain of cough. He has been off oxygen, other vital signs are stable, remained afebrile. The patient is a 42 year old M admitted because of symptoms of cough, shortness of breath, sore throat and subjective fever and he was found to have sepsis secondary to viral bronchitis and was complicated by hypoxia. His chest x-ray done on admission revealed no evidence of infiltrate, consolidation or effusion. Repeat chest x-ray done after 1 day of admission and again revealed no evidence of infiltrate or consolidation, pneumonia ruled out. He was treated with IV fluids, decongestants, bronchodilators and antiemetics. No antibiotic was given. Nasal swab for influenza a and B were negative. Respiratory panel for viruses was negative as well. Pneumococcal and Legionella antigen were negative. C. difficile serology was done because patient complaining of diarrhea and came back negative as well. Blood culture showed no growth in 48 hours. Urine culture revealed group B strep but it was below infection 11 and patient was asymptomatic. Sputum culture revealed possible gram-negative rods. With above-mentioned treatment, patient symptoms improved although he continued to complain of cough. His lactic acid is back to normal. Leukocytosis resolved on repeat CBC. We were able to wean him off oxygen and his pulse ox maintained on room air after treatment. He did have a history of type 2 diabetes mellitus which seems to be uncontrolled. His hemoglobin A1c was 11.1. His blood sugar has been in the range of 300-400. He was started on Lantus insulin. Patient discharged home in a stable medical condition, discharged on Robitussin as needed for cough, no antibiotic given upon discharge, discharged on Lantus insulin 10 units daily, diabetic education was provided by camouflage specialist, continued on glyburide, recommended to check his blood sugar at least 3-4 times daily, follow-up with PCP in 1 week. - Physical Exam General: Alert, Oriented x3, Cooperative, No apparent distress HEENT: Atraumatic, PERRLA, EOMI, Normocephalic Oral: Moist Mucosa, No Gingival or Mucosal Lesions/ Ulcerations Neck: Supple, No JVD, Negative Carotid Bruits, Trachea Midline, Thyroid Normal Size and Texture Lungs: Clear to auscultation, No rhonchi, No wheeze, No rales, Diminished Cardiovascular: Regular rate, Regular Rhythm, Normal S1, Normal S2, PMI Normal Abdomen: Bowel Sounds Present, Soft, Non Tender, Non-Distended, No Hepato-splenomegaly Extremities: No clubbing, No cyanosis, No edema Skin: No rashes, No breakdown Lymphatic: No Cervical, Supraclavicular, or Inguinal Adenopathy Neurological: Cranial nerves II-XII grossly intact, Neuro grossly intact Psych/Mental Status: Normal Affect, Appropriate Vital Signs Temp Pulse Resp BP Pulse Ox 98.8 F 100 16 125/78 H 98 08/23/18 09:30 08/23/18 09:30 08/23/18 09:30 08/23/18 09:30 08/23/18 09:30 Oxygen Flow Rate (L/min) 93 Oxygen Delivery Method Room Air Weight: 187 lb 2.759 oz Body Mass Index (BMI) 27.6 Finger Stick Blood Glucose 335 Intake and Output for Last 24 Hours 08/21/18 08/22/18 08/23/18 23:59 23:59 23:59 Intake Total 1824 / 1824 2980 / 2980 650 / 650 Output Total 650 / 650 Balance 1174 / 1174 2980 / 2980 650 / 650 Microbiology Past 72 Hours 08/21/18 13:05 Blood Culture - Preliminary Blood Culture (Wb) - Right Forearm No growth in 48 hours. 08/21/18 10:10 Blood Culture - Preliminary Blood Culture (Wb) - Right Hand No growth in 48 hours. 08/21/18 17:55 Gram Stain - Final Sputum, Expectorated/Coughed Respiratory Culture - Preliminary GNR Possible Haemophilus sp. 08/21/18 15:50 Urine Culture - Preliminary Urine, Clean Catch Streptococcus group B 08/21/18 15:35 Respiratory Panel (PCR) - Final Mucosa - Nasopharyngeal 08/21/18 17:55 C. difficile DNA Amplification - Final Stool 08/21/18 15:50 Streptococcus pneumoniae Antigen (M - Final Urine, Clean Catch 08/21/18 15:50 Legionella Antigen - Final Urine, Clean Catch 08/21/18 10:15 Influenza Types A,B Direct FA (JULY) - Final Mucosa - Nose Laboratory Tests Past 24 Hrs 08/23/18 06:00 WBC 10.8 RBC 4.48 L Hgb 12.7 L Hct 38.9 L MCV 86.8 MCH 28.3 MCHC 32.6 RDW 13.3 RDW Differential 42.6 Plt Count 213 MPV 11.2 Immature Gran % (Auto) 0.200 Neut % (Auto) 73.0 H Lymph % (Auto) 19.1 [place] % (Auto) 7.1 Eos % (Auto) 0.4 Baso % (Auto) 0.2 Absolute Neuts (auto) 7.9 H Absolute Lymphs (auto) 2.07 Total Counted Not Reportable POC Glucose 08/23/18 08/23/18 08/22/18 11:29 06:30 21:50 POC Glucose 349 H 294 H 345 H 08/22/18 16:42 POC Glucose 347 H Discharge Activity: Return to Normal Activity Weight Bearing Status: Full weight bearing Call your doctor if you observe: Fever of 101 or Higher, Shortness of breath, Dizziness, Fainting spells, Chest pain, Increased palpitations (irregular heartbeat), Uncontrolled pain Home Medications: Medications to take at Discharge Clonazepam 0.5 mg PO BID PRN 08/21/18 Mirtazapine [Remeron] 15 mg PO QHS 08/21/18 Oxycodone [Oxyfast] 10 mg PO DAILY PRN PRN 08/21/18 glyBURIDE [Micronase] 10 mg PO BID 08/21/18 Guaifenesin [Robitussin] 10 ml PO Q6H PRN PRN 5 Days udc 08/23/18 Insulin Glargine [Lantus SoloStar Pen] 10 units SC DAILY #2 pen 08/23/18 Following Prescrptions Were Given to Patient: Guaifenesin [Robitussin] 10 ml PO Q6H PRN PRN 5 Days udc PRN Reason: COUGH Insulin Glargine [Lantus SoloStar Pen] 10 units SC DAILY #2 pen Primary Care Physician: Dagoberto Zarco DO [Primary Care Provider] - Please follow up with your Primary Care Physician in: 1 week. Patient Instructions: Using a Blood Sugar Log, Hyperglycemia (High Blood Sugar), Hypoglycemia (Low Blood Sugar), How to Check Your Blood Sugar, Using Injected Insulin Disposition: Home Minutes spent on discharge:: 32 Patient Condition:: Stable Medical Necessity - Tobacco Use Smoking Status: Current every day smoker Tobacco Use: - Meaningful Use Info Meaningful Use Diagnoses (Choose all that apply): None applicable Code Visit Inpatient E&M: 87835 Disch Hosp
--- NOTE | 2018-08-23 12:14 | DS.PCM_ITS ---
Discharge Date and Diagnosis Date of Admission: 08/21/18 Date of Discharge: 08/23/18 - Primary Discharge Diagnosis #1 viral bronchitis/sepsis. #2 hypoxia. #3 uncontrolled type 2 diabetes mellitus. #4 mild hypokalemia. - Secondary Discharge Diagnosis Chronic Problems (Last Reviewed 06/13/18 @ 13:03 by Hattie Simeon) Anxiety (Chronic) Depression (Chronic) Asthma (Chronic) Type 2 diabetes mellitus (Chronic) History of follicular lymphoma (Chronic) Hospital Course and Treatment Imaging Results: Clinical Impression(s) from Imaging Studies Chest X-Ray 08/21/18 10:40 IMPRESSION: No acute abnormality is seen. There has been no change as compared to prior study. Electronically Signed: Norbert Guardado MD at 11:19 EST Tel [phone], Service support , Chest X-Ray 08/22/18 05:55 IMPRESSION: Stable examination. Electronically Signed: Norbert Guardado MD at 10:42 EST Tel [phone], Service support , Operations: None Procedures: None Summary of Care Provided: Patient seen and examined on the day of discharge and appeared to be stable to be discharged home. Symptoms improved, continued to complain of cough. He has been off oxygen, other vital signs are stable, remained afebrile. The patient is a 42 year old M admitted because of symptoms of cough, shortness of breath, sore throat and subjective fever and he was found to have sepsis secondary to viral bronchitis and was complicated by hypoxia. His chest x-ray done on admission revealed no evidence of infiltrate, consolidation or effusion. Repeat chest x-ray done after 1 day of admission and again revealed no evidence of infiltrate or consolidation, pneumonia ruled out. He was treated with IV fluids, decongestants, bronchodilators and antiemetics. No antibiotic was given. Nasal swab for influenza a and B were negative. Respiratory panel for viruses was negative as well. Pneumococcal and Legionella antigen were negative. C. difficile serology was done because patient complaining of diarrhea and came back negative as well. Blood culture showed no growth in 48 hours. Urine culture revealed group B strep but it was below infection 11 and patient was asymptomatic. Sputum culture revealed possible gram-negative rods. With above-mentioned treatment, patient symptoms improved although he continued to complain of cough. His lactic acid is back to normal. Leukocytosis resolved on repeat CBC. We were able to wean him off oxygen and his pulse ox maintained on room air after treatment. He did have a history of type 2 diabetes mellitus which seems to be uncontrolled. His hemoglobin A1c was 11.1. His blood sugar has been in the range of 300-400. He was started on Lantus insulin. Patient discharged home in a stable medical condition, discharged on Robitussin as needed for cough, no antibiotic given upon discharge, discharged on Lantus insulin 10 units daily, diabetic education was provided by math interventionist, continued on glyburide, recommended to check his blood sugar at least 3-4 times daily, follow-up with PCP in 1 week. - Physical Exam General: Alert, Oriented x3, Cooperative, No apparent distress HEENT: Atraumatic, PERRLA, EOMI, Normocephalic Oral: Moist Mucosa, No Gingival or Mucosal Lesions/ Ulcerations Neck: Supple, No JVD, Negative Carotid Bruits, Trachea Midline, Thyroid Normal Size and Texture Lungs: Clear to auscultation, No rhonchi, No wheeze, No rales, Diminished Cardiovascular: Regular rate, Regular Rhythm, Normal S1, Normal S2, PMI Normal Abdomen: Bowel Sounds Present, Soft, Non Tender, Non-Distended, No Hepato- splenomegaly Extremities: No clubbing, No cyanosis, No edema Skin: No rashes, No breakdown Lymphatic: No Cervical, Supraclavicular, or Inguinal Adenopathy Neurological: Cranial nerves II-XII grossly intact, Neuro grossly intact Psych/Mental Status: Normal Affect, Appropriate Vital Signs Temp Pulse Resp BP Pulse Ox 98.8 F 100 16 125/78 H 98 08/23/18 09:30 08/23/18 09:30 08/23/18 09:30 08/23/18 09:30 08/23/18 09:30 Oxygen Flow Rate (L/min) 93 Oxygen Delivery Method Room Air Weight: 187 lb 2.759 oz Body Mass Index (BMI) 27.6 Finger Stick Blood Glucose 335 Intake and Output for Last 24 Hours 08/21/18 08/22/18 08/23/18 23:59 23:59 23:59 Intake Total 1824 / 1824 2980 / 2980 650 / 650 Output Total 650 / 650 Balance 1174 / 1174 2980 / 2980 650 / 650 Microbiology Past 72 Hours 08/21/18 13:05 Blood Culture - Preliminary Blood Culture (Wb) - Right Forearm No growth in 48 hours. 08/21/18 10:10 Blood Culture - Preliminary Blood Culture (Wb) - Right Hand No growth in 48 hours. 08/21/18 17:55 Gram Stain - Final Sputum, Expectorated/Coughed Respiratory Culture - Preliminary GNR Possible Haemophilus sp. 08/21/18 15:50 Urine Culture - Preliminary Urine, Clean Catch Streptococcus group B 08/21/18 15:35 Respiratory Panel (PCR) - Final Mucosa - Nasopharyngeal 08/21/18 17:55 C. difficile DNA Amplification - Final Stool 08/21/18 15:50 Streptococcus pneumoniae Antigen (M - Final Urine, Clean Catch 08/21/18 15:50 Legionella Antigen - Final Urine, Clean Catch 08/21/18 10:15 Influenza Types A,B Direct FA (JULY) - Final Mucosa - Nose Laboratory Tests Past 24 Hrs 08/23/18 06:00 WBC 10.8 RBC 4.48 L Hgb 12.7 L Hct 38.9 L MCV 86.8 MCH 28.3 MCHC 32.6 RDW 13.3 RDW Differential 42.6 Plt Count 213 MPV 11.2 Immature Gran % (Auto) 0.200 Neut % (Auto) 73.0 H Lymph % (Auto) 19.1 [place] % (Auto) 7.1 Eos % (Auto) 0.4 Baso % (Auto) 0.2 Absolute Neuts (auto) 7.9 H Absolute Lymphs (auto) 2.07 Total Counted Not Reportable POC Glucose 08/23/18 08/23/18 08/22/18 11:29 06:30 21:50 POC Glucose 349 H 294 H 345 H 08/22/18 16:42 POC Glucose 347 H Discharge Activity: Return to Normal Activity Weight Bearing Status: Full weight bearing Call your doctor if you observe: Fever of 101 or Higher, Shortness of breath, Dizziness, Fainting spells, Chest pain, Increased palpitations (irregular heartbeat), Uncontrolled pain Home Medications: Medications to take at Discharge Clonazepam 0.5 mg PO BID PRN 08/21/18 Mirtazapine [Remeron] 15 mg PO QHS 08/21/18 Oxycodone [Oxyfast] 10 mg PO DAILY PRN PRN 08/21/18 glyBURIDE [Micronase] 10 mg PO BID 08/21/18 Guaifenesin [Robitussin] 10 ml PO Q6H PRN PRN 5 Days udc 08/23/18 Insulin Glargine [Lantus SoloStar Pen] 10 units SC DAILY #2 pen 08/23/18 Following Prescrptions Were Given to Patient: Guaifenesin [Robitussin] 10 ml PO Q6H PRN PRN 5 Days udc PRN Reason: COUGH Insulin Glargine [Lantus SoloStar Pen] 10 units SC DAILY #2 pen Primary Care Physician: Dagoberto Zarco DO [Primary Care Provider] - Please follow up with your Primary Care Physician in: 1 week. Patient Instructions: Using a Blood Sugar Log, Hyperglycemia (High Blood Sugar), Hypoglycemia (Low Blood Sugar), How to Check Your Blood Sugar, Using Injected Insulin Disposition: Home Minutes spent on discharge:: 32 Patient Condition:: Stable Medical Necessity - Tobacco Use Smoking Status: Current every day smoker Tobacco Use: - Meaningful Use Info Meaningful Use Diagnoses (Choose all that apply): None applicable Code Visit Inpatient E&M: 17711 Disch Hosp
--- NOTE | 2018-08-24 14:17 | CASEMGMT ---
KARO KERNS Discharge Follow-Up Phone Call. Rachel: Roberto Strata: 3 Discharge Date: 08/23/18 Adm Dx: Acute viral bronchitis, sepsis, hypoxia, uncontrolled type 2 DM. Call placed to pt for discharge follow-up phone call. Pt's Sig Other, Betty, answered the phone and stated Mr Escobedo is not feeling well. She stated she handed the phone to Mr Escobedo and that he handed it back to her. She stated he did not sleep well last night, is coughing a lot, and is feeling worse today. She stated that he has an appt today with Dr Zarco today @ 1530 and that she is getting ready to take him in the appt now. Betty also stated that they were able to strip picker his discharge medications but stated, they gave him the wrong insulin needles and I haven't been able to give him his insulin since he's been home. Betty states she called [facility] and informed them and that they told her to come back in and they would give her the correct needles. Betty states she is hoping to pick them up today after the doctor appt. Betty states pt has not checked his blood sugar today. While on the phone w/Betty she checked Mr Escobedo's blood sugar and she stated it is 234 at this time. Betty states they are wanting to switch pharmacies and will let Dr Zarco's office know. Betty states she does not have any other questions or concerns about the discharge instructions and she voiced appreciation of phone call. Jade TEJADA RN, CM
== END 2018-08-23 11:54 | disposition home or self-care (01) | DRG 872 ==
LOC: ED 10:35 → MS3 13:33
PROVIDERS: Admitting Provider Hospitalist; Emergency Provider Emergency Medicine; Family Provider Family Medicine; PCP Family Medicine; Visit Provider Hospitalist
DX: A41.89 Other specified sepsis (principal); J20.8 Acute bronchitis due to other specified organisms; E11.65 Type 2 diabetes mellitus with hyperglycemia; R09.02 Hypoxemia; J45.909 Unspecified asthma, uncomplicated; E87.6 Hypokalemia; F17.200 Nicotine dependence, unspecified, uncomplicated; Z79.84 Long term (current) use of oral hypoglycemic drugs; Z92.21 Personal history of antineoplastic chemotherapy; Z85.72 Personal history of non-Hodgkin lymphomas; F41.9 Anxiety disorder, unspecified; F32.9 Major depressive disorder, single episode, unspecified
CPT/HCPCS: 36415; 71046; 80048; 81001; 82962; 83036; 83605; 84484; 85025; 87040; 87070; 87077; 87086; 87088; 87205; 87449; 87493; 87633; 87804; 93005; 94640; 94667; 94668; 97802; 99284; 99406; J7030

== ENCOUNTER → 2019-02-16 15:08 | Outpatient (CLI) | payer MEDICARE, SELFPAY ==
[2018-08-21 14:08] VITALS: BMI 27.6
[2019-02-16 17:13] LABS: Absolute Lymphocyte Count 1.82 X10^3/ul (0.83-4.51); Absolute Neutrophil Count 5.2 X10^3/uL (2.0-7.7); Basophil# 0.04 X10^3/uL; Basophil% 0.5 % (0-1); Eosinophil# 0.14 X10^3/uL; Eosinophils% 1.8 % (0-5); Hematocrit 44.9 % (40-54); Hemoglobin 15.6 g/dl (13.0-16.5); Lymphocyte # 1.82 X10^3/ul (4.0); Lymphocyte % 23.5 % (19-41); Mean Corp Hgb Conc 34.7 g/gl (32-36); Mean Corpuscular Hgb 29.1 pg (27.0-32.0); Mean Corpuscular Volume 83.8 fL (80-94); Mean Platelet Vol. 10.8 fl (6.2-12.0); Monocyte% 6.5 % (0-10); Neutrophil # 5.24 X10^3/uL (2.7-7.7); Neutrophil % 67.6 % (47-70); POSITIVE COUNT NO; POSITIVE DIFFERENTIAL NO; POSITIVE MORPHOLOGY NO; Platelet Count 225 K/mm3 (150-450); RBC Distribution Width CV 13.2 % (11.6-14.6); RBC Distribution Width SD 39.5 fl (35.1-43.9); Red Blood Count 5.36 M/mm3 (4.6-6.2); White Blood Count 7.8 K/mm3 (4.4-11.0)
[2019-02-16 17:21] LABS: Hemoglobin A1c 8.1 % (4.2-6.3)
[2019-02-16 17:30] LABS: ALB/GLOB Ratio 1.1 RATIO (0.9-2.4); AST(SGOT) 52 U/L (15-37); Alanine Aminotransfer ALT/SGPT 62 U/L (16-61); Albumin, Serum 4.3 g/dL (3.2-5.0); Alkaline Phosphatase 88 U/L (45-117); Anion Gap 11 (5-15); BUN 13 mg/dL (7-18); BUN/Creat Ratio 15.2 RATIO (10-20); Calcium,Total 9.4 mg/dL (8.5-10.1); Chloride 104 mmol/L (98-107); Creatinine, Serum 0.86 mg/dL (0.70-1.30); EST Glomerular Filtration Rate 104 mL/min (>60); Est Glom Filt Rate - Afr Amer 125 mL/min (>60); Globulin 3.9 g/dL (2.2-4.2); Glucose 155 mg/dL (74-106); LDH 240 U/L (87-241); Potassium 3.7 mmol/L (3.5-5.1); Protein, Total 8.2 g/dL (6.4-8.2); Sodium Level 141 mmol/L (136-145)
== END ==
PROVIDERS: Family Provider Family Medicine; PCP Family Medicine; Visit Provider Internal Medicine Medical Oncology
DX: E11.9 Type 2 diabetes mellitus without complications (principal); Z85.79 Personal history of other malignant neoplasms of lymphoid, hematopoietic and related tissues
CPT/HCPCS: 80053; 83036; 83615; 85025

== ENCOUNTER → 2020-02-26 | Outpatient (CLI) | payer MEDICARE, SELFPAY ==
[2018-08-21 14:08] VITALS: BMI 27.6
== END | disposition home or self-care (01) ==
LOC: MTDU 09:29
PROVIDERS: PCP Family Medicine; Referring Provider Family Medicine; Visit Provider Family Medicine
DX: Z20.828 Contact with and (suspected) exposure to other viral communicable diseases (principal)
CPT/HCPCS: 87635; G2023; U0003

== ENCOUNTER 2021-10-31 12:48 | Observation (INO) | payer MEDICARE, SELFPAY ==
[2021-10-31] VITALS (11 sets, daily range): BP systolic 88–134; BP diastolic 50–86; PULSE 67–107; RESP 16–18; TEMP 36.8–38.1; O2SAT 92–100; BMI 26.2; BMI 26.4
--- NOTE | 2021-10-31 13:20 | EDS_ITS ---
HPI History of Present Illness Chief Complaint: Flank Pain Narrative Narrative: 45-year-old male presenting with right flank pain. He states he has had this intermittently since . He was seen in [place] and diagnosed with a 0.3 cm right proximal ureteral stone. Patient has nausea but is not been vomiting. Patient is chronically on Percocet as needed for pain in his lower back. He states the different pain. He states that the Percocet is not helping his flank pain as much. He still nauseous. Patient states that in 2007 he had a history of kidney stones. He had to have the surgically removed with a laser he states. He does not have a urologist. The urologist from [place] did already set up appointment for him for next week although he still having pain and nausea. Patient denies fever or chills. PFSH PFSH Medical History Anxiety Arthritis Depression Diabetes mellitus Follicular lymphoma Headache Hearing problem Hyperlipidemia Hypertension Kidney stones Right axilla lymph node removal Sleep apnea Home Medications clonazepam 0.5 mg PO BID PRN 08/21/18 [History Last Taken 08/20/18] glyburide 10 mg PO BID 08/21/18 [History Last Taken 08/20/18] mirtazapine 15 mg PO QHS 08/21/18 [History Last Taken 08/20/18] oxycodone 10 mg PO DAILY PRN PRN 08/21/18 [History Last Taken Unknown] Lantus Solostar U-100 Insulin 10 units SUBCUT DAILY #2 pen 08/23/18 [Rx Last Taken Unknown] clomipramine 25 mg PO QHS 10/31/21 [History Last Taken Unknown] tamsulosin 0.4 mg PO DAILY 10/31/21 [History Last Taken Unknown] Allergy/AdvReac Type Severity Reaction Status Date / Time No Known Allergies Allergy Verified 10/31/21 12:48 Family History Mother Heart disease Hypertension Asthma Arthritis Father Prostate cancer Hypertension Hyperlipidemia Diabetes COPD (chronic obstructive pulmonary disease) Asthma Arthritis Surgical History History of lithotripsy Social History Smoking Status: Current every day smoker tobacco type: e-cigarettes ROS ROS ED Constitutional Constitutional ED: Denies chills, fever(s) or sweats Eyes Eyes: Denies blurry vision ENT ENT ED: Denies rhinorrhea or sore throat Cardiovascular Cardiovascular: Denies chest pain or palpitations Respiratory/Chest Respiratory/Chest: Denies cough or dyspnea Gastrointestinal Gastrointestinal: Reports abdominal pain, nausea and vomiting Genitourinary Genitourinary ED: Reports hematuria; Denies dysuria Musculoskeletal Musculoskeletal: Reports other Details: Right flank pain Integumentary Denies rash Neurologic Neurologic: Denies headache(s) or paresthesias Psychiatric Psychiatric: Denies anxiety or depression EXAM Physical Exam Const Vital Signs: 10/31/21 12:48 Temperature 98.3 F Temperature Source Temporal Pulse Rate 102 H Respiratory Rate 18 Blood Pressure 134/86 H Blood Pressure Mean 102 Pulse Ox 96 Positive well nourished General Appearance ED: NAD; Negative for pallor HEENT normocephalic and atraumatic Eyes PERRL and EOMs intact bilaterally General Eye ED: Negative for pale conjunctiva or scleral icterus Resp normal respiratory effort and clear to auscultation bilaterally Cardio regular rhythm Rate: tachycardic GI non-distended Palpation: soft Bladder / Kidney Exam: CVA tenderness right Extremity normal to inspection General Extremety ED: Negative for edema or tenderness General Extremity: Negative for edema Neuro oriented x3, CN's II-XII intact bilaterally, moves all extremities, no focal motor deficits and no sensory deficits noted Sensorium / Orientation: alert Motor Exam: strength 5/5 throughout Psych mental status grossly normal Skin General Skin Exam: Negative for jaundice or pallor Rashes: no rashes MDM MDM MDM Narrative Medical decision making narrative: Patient seen and evaluated for right flank pain. Is a history of a 0.3 cm right proximal ureteral calculus. He states has been in pain since . He is not eating and drinking well. On exam he does have CVA tenderness. I obtained a urinalysis which shows urine ketones, 1000 urine glucose, no evidence of infection. Patient does have a leukocytosis of 16,000 which is new from when it was normal. His creatinine is now elevated as well at 1.93. Patient was given IV fluids and 2 doses of morphine on top of this home prescribed Percocet which did not control his pain he states his pain was down to a 7. I obtained a CT of the abdomen pelvis again because of the change in the white blood cell count. This does show hydroureter and hydronephrosis with a 0.3 cm ureteral stone. Since patient's pain is not controlled I spoke with Dr. Guerrero who suggested take him to the OR for ureteral stent. Patient was amenable to this. Patient was transported in stable c ondition. Impression: 1. 3 mm ureteral stone 2. Right-sided hydronephrosis 3. Right-sided hydroureter 4. Acute kidney injury 5. Leukocytosis Lab Data Labs: Laboratory Results - last 24 hr 10/31/21 10/31/21 10/31/21 12:59 12:59 13:43 WBC Cancelled 16.3 H Corrected WBC Cancelled RBC Cancelled 4.56 L Hgb Cancelled 13.5 Hct Cancelled 39.1 L MCV Cancelled 85.7 MCH Cancelled 29.6 MCHC Cancelled 34.5 RDW Std Deviation Cancelled 39.9 RDW Coeff of Slick Cancelled 12.8 Plt Count Cancelled 199 MPV Cancelled 10.2 Immature Gran % (Auto) Cancelled 0.400 Neut % (Auto) Cancelled 89.4 H Lymph % (Auto) Cancelled 4.2 L [place] % (Auto) Cancelled 5.8 Eos % (Auto) Cancelled 0.0 Baso % (Auto) Cancelled 0.2 Absolute Neuts (auto) Cancelled 14.5 H Absolute Lymphs (auto) Cancelled 0.68 L Total Counted Cancelled Neutrophils % (Manual) Cancelled Band Neutrophils % Cancelled Lymphocytes % (Manual) Cancelled Monocytes % (Manual) Cancelled Eosinophils % (Manual) Cancelled Basophils % (Manual) Cancelled Metamyelocytes % Cancelled Myelocytes % Cancelled Promyelocytes % Cancelled Blast Cells % Cancelled Plasma Cell % (Manual) Cancelled Other Cells % Cancelled Nucleated RBC % Cancelled 0 Nucleated RBCs/100 WBC Cancelled Differential Comment Cancelled Diff Path Review Cancelled Hypersegmented Neuts Cancelled Atypical Lymphocytes Cancelled Reactive Lymphocytes Cancelled Smudge Cells Cancelled Toxic Granulation Cancelled Toxic Vacuolation Cancelled Dohle Bodies Cancelled Saeid Rods Cancelled Platelet Estimate Cancelled Plt Morphology Comment Cancelled RBC Morphology Cancelled Polychromasia Cancelled Hypochromasia Cancelled Poikilocytosis Cancelled Basophilic Stippling Cancelled Anisocytosis Cancelled Microcytosis Cancelled Macrocytosis Cancelled Spherocytes Cancelled Sickle Cells Cancelled Target Cells Cancelled Tear Drop Cells Cancelled Ovalocytes Cancelled Stomatocytes Cancelled Gupta-[place] Bodies Cancelled [place] Cells Cancelled Bite Cells Cancelled Crenated Cell Cancelled Acanthocytes (Spur) Cancelled Rouleaux Cancelled Schistocytes Cancelled Sodium 137 Potassium 4.2 Chloride 100 Carbon Dioxide 29.0 Anion Gap 8 BUN 18 Creatinine 1.93 H Estim Creat Clear Calc 49.91 Est GFR (MDRD) Af Amer 49 L Est GFR (MDRD) Non-Af 40 L BUN/Creatinine Ratio 9.3 L Glucose 201 H Calcium 9.8 Total Bilirubin 2.20 H AST 23 ALT 24 Alkaline Phosphatase 78 Total Protein 8.0 Albumin 4.1 Globulin 3.9 Albumin/Globulin Ratio 1.1 Urine Color Urine Clarity Urine pH Ur Specific [place] Urine Protein Urine Glucose (UA) Urine Ketones Urine Occult Blood Urine Nitrite Urine Bilirubin Urine Urobilinogen Ur Leukocyte Esterase Urine RBC Urine WBC Ur Squamous Epith Cells Urine Bacteria Urine Mucus 10/31/21 14:57 WBC Corrected WBC RBC Hgb Hct MCV MCH MCHC RDW Std Deviation RDW Coeff of Slick Plt Count MPV Immature Gran % (Auto) Neut % (Auto) Lymph % (Auto) [place] % (Auto) Eos % (Auto) Baso % (Auto) Absolute Neuts (auto) Absolute Lymphs (auto) Total Counted Neutrophils % (Manual) Band Neutrophils % Lymphocytes % (Manual) Monocytes % (Manual) Eosinophils % (Manual) Basophils % (Manual) Metamyelocytes % Myelocytes % Promyelocytes % Blast Cells % Plasma Cell % (Manual) Other Cells % Nucleated RBC % Nucleated RBCs/100 WBC Differential Comment Diff Path Review Hypersegmented Neuts Atypical Lymphocytes Reactive Lymphocytes Smudge Cells Toxic Granulation Toxic Vacuolation Dohle Bodies Saeid Rods Platelet Estimate Plt Morphology Comment RBC Morphology Polychromasia Hypochromasia Poikilocytosis Basophilic Stippling Anisocytosis Microcytosis Macrocytosis Spherocytes Sickle Cells Target Cells Tear Drop Cells Ovalocytes Stomatocytes Gupta-[place] Bodies [place] Cells Bite Cells Crenated Cell Acanthocytes (Spur) Rouleaux Schistocytes Sodium Potassium Chloride Carbon Dioxide Anion Gap BUN Creatinine Estim Creat Clear Calc Est GFR (MDRD) Af Amer Est GFR (MDRD) Non-Af BUN/Creatinine Ratio Glucose Calcium Total Bilirubin AST ALT Alkaline Phosphatase Total Protein Albumin Globulin Albumin/Globulin Ratio Urine Color Yellow Urine Clarity Clear Urine pH 5.0 Ur Specific [place] 1.025 Urine Protein Negative Urine Glucose (UA) 1000 H Urine Ketones 150 A* Urine Occult Blood 10 H Urine Nitrite Negative Urine Bilirubin Negative Urine Urobilinogen Normal Ur Leukocyte Esterase Negative Urine RBC 0 SEEN Urine WBC 0 SEEN Ur Squamous Epith Cells 0 SEEN Urine Bacteria 0 SEEN Urine Mucus 0 SEEN Radiography Diagnostic Testing: Clinical Impression(s) from Imaging Studies Abdomen/Pelvis CT 10/31/21 13:57 IMPRESSION: Obstruction of the right collecting system due to a 3 mm stone in the mid right ureter. There is right-sided hydronephrosis and hydroureter. Individualized dose optimization techniques were used for this CT. at 1446 Reported and signed by: Artemio Ramirez MD Electronically Signed: Artemio Ramirez MD at 14:45 EDT , Discharge Plan Triage Chief Complaint: Flank Pain ED Provider: Adiel Tello Dx/Rx/DC Orders Prescriptions: No Action glyburide 5 MG tablet 10 mg PO BID RF: 0 clonazepam 0.5 MG tablet 0.5 mg PO BID PRN (Reason: Anxiety) RF: 0 mirtazapine 15 MG tablet 15 mg PO QHS RF: 0 oxycodone 10 MG/0.5 ML Ml 10 mg PO DAILY PRN PRN (Reason: Pain) RF: 0 Lantus Solostar U-100 Insulin 100 UNITS/ML insulin pen 10 units subcut DAILY Qty: 2 RF: 0 tamsulosin 0.4 mg capsule 0.4 mg PO DAILY RF: 0 clomipramine 25 mg capsule 25 mg PO QHS RF: 0 Primary Care Provider: Dagoberto Zarco
[2021-10-31] MEDS: Ondansetron 4 MG/2 ML Vial IV (13:25)
[2021-10-31] MEDS: 0.9% Normal Saline 1,000 ML 999 ML IV ×2 (13:25→14:39)
[2021-10-31] MEDS: Morphine 4 MG/ML Syringe IV ×2 (13:25→15:15)
[2021-10-31 13:53] LABS: Absolute Lymphocyte Count 0.68 X10^3/uL (0.83-4.51); Absolute Neutrophil Count 14.5 X10^3/uL (2.0-7.7); Basophil# 0.03 X10^3/uL; Basophil% 0.2 % (0-1); Hematocrit 39.1 % (40-54); Hemoglobin 13.5 g/dL (13.0-16.5); Lymphocyte # 0.68 X10^3/ul (0.83-4.51); Lymphocyte % 4.2 % (19-41); Mean Corp Hgb Conc 34.5 g/dL (32-36); Mean Corpuscular Hgb 29.6 pg (27.0-32.0); Mean Corpuscular Volume 85.7 fL (80-94); Mean Platelet Vol. 10.2 fl (6.2-12.0); Monocyte# 0.94 X10^3/uL; Monocyte% 5.8 % (0-10); NRBC Flagged by Analyzer 0 % (0-5); Neutrophil # 14.53 X10^3/uL (2.7-7.7); Neutrophil % 89.4 % (47-70); Platelet Count 199 K/mm3 (150-450); RBC Distribution Width CV 12.8 % (11.6-14.6); RBC Distribution Width SD 39.9 fl (35.1-43.9); Red Blood Count 4.56 M/mm3 (4.6-6.2); White Blood Count 16.3 K/mm3 (4.4-11.0)
--- NOTE | 2021-10-31 13:57 | CT_ITS ---
EXAM: CT ABDOMEN AND PELVIS WITHOUT INTRAVENOUS CONTRAST : 1975 CLINICAL INDICATION: right flank pain TECHNIQUE: Helically acquired images were obtained of the abdomen and pelvis without intravenous contrast. This CT exam was performed using one or more of the following dose reduction techniques: automated exposure control, adjustment of the mA and/or kV according to patient size, and/or use of iterative reconstruction technique. This report was created using [employer] report generation technology. COMPARISON: 07/05/2017 FINDINGS: LOWER THORAX: There is atelectasis or scarring in the right lung base. No cardiomegaly. No significant pericardial effusion. ABDOMEN: LIVER: Unremarkable. Homogeneous. GALLBLADDER AND BILE DUCTS: Unremarkable. No calcified gallstones. No gallbladder distention or wall edema. No intra- or extrahepatic biliary ductal dilation. PANCREAS: Unremarkable. No focal cystic mass. SPLEEN: Unremarkable. Normal size without focal cystic or solid mass. ADRENALS: Unremarkable. No nodules. KIDNEYS AND URETERS: There is right-sided hydronephrosis and hydroureter there is a 3 mm stone in the mid right ureter. Normal renal size and position. STOMACH AND BOWEL: Unremarkable. No stomach or bowel distention. No focal inflammatory change. PELVIS: APPENDIX: No evidence of acute appendicitis. BLADDER: Unremarkable. REPRODUCTIVE: Unremarkable as visualized. No mass. ABDOMEN and PELVIS: INTRAPERITONEAL SPACE: Unremarkable. No ascites or other fluid collection. No free air. BONES/JOINTS: Unremarkable. No suspicious lytic or blastic abnormality. SOFT TISSUES: Unremarkable. No discrete abdominal or pelvic wall hernia. VASCULATURE: Unremarkable. Abdominal aorta is non-dilated. LYMPH NODES: Unremarkable. No enlarged lymph nodes. CT/Abdomen/Pelvis without Cont IMPRESSION: Obstruction of the right collecting system due to a 3 mm stone in the mid right ureter. There is right-sided hydronephrosis and hydroureter. Individualized dose optimization techniques were used for this CT. at 1446 Reported and signed by: Artemio Ramirez MD Electronically Signed: Artemio Ramirez MD at 14:45 EDT ,
[2021-10-31 14:00] LABS: ALB/GLOB Ratio 1.1 RATIO (0.9-2.4); AST(SGOT) 23 U/L (15-37); Alanine Aminotransfer ALT/SGPT 24 U/L (16-61); Albumin, Serum 4.1 g/dL (3.2-5.0); Alkaline Phosphatase 78 U/L (45-117); Anion Gap 8 (5-15); BUN 18 mg/dL (7-18); BUN/Creat Ratio 9.3 RATIO (10-20); Calcium,Total 9.8 mg/dL (8.5-10.1); Chloride 100 mmol/L (98-107); Creatinine, Serum 1.93 mg/dL (0.70-1.30); EST Glomerular Filtration Rate 40 mL/min (>60); Est Glom Filt Rate - Afr Amer 49 mL/min (>60); Estimated Creatinine Clearance 49.91 ml/min; Globulin 3.9 g/dL (2.2-4.2); Glucose 201 mg/dL (74-106); Potassium 4.2 mmol/L (3.5-5.1); Sodium Level 137 mmol/L (136-145)
[2021-10-31 15:04] LABS: Bacteria 0 SEEN /hpf (None Seen); Mucous, Urine 0 SEEN /hpf (<or=2+); Red Blood Cells-Urine 0 SEEN /hpf (0-5); Squamous Epithelial Cells - UA 0 SEEN /hpf (0-5); White Blood Cells 0 SEEN /hpf (0-5)
[2021-10-31 15:14] LABS: Color, Urine Yellow (Yellow); Glucose, Dipstick 1000 mg/dl (Normal); Leukocyte Esterase-Dipstick Negative /ul (Negative); Nitrite-Dipstick Negative (Negative); Occult Blood-Urine 10 /ul (Negative); Protein-Dipstick Negative (Negative); Specific Gravity, Urine 1.025 (1.002-1.030); Urine Bilirubin Dipstick Negative (Negative); Urine Clarity Clear (Clear); Urine Urobilinogen Normal (Normal)
[2021-10-31 15:35] LABS: Ketone-Dipstick 150 mg/dl (Negative)
[2021-10-31] MEDS: HYDROmorphone 0.5 MG/0.5 ML SYRINGE IV (17:56)
[2021-10-31] MEDS: Lidocaine Jelly 2% 20 ML Syringe (URO-JET) 1 APPLIC (18:15)
--- NOTE | 2021-10-31 18:16 | PCM.HP.STD ---
HPI - General HPI Narrative SENG GOMEZ, is a 45 M who presents with an obstructing stone in the mid right ureter and severe renal colic the emergency room states they were not able to get his pain under control and therefore he was brought to the operating room for placement of a stent on the right side. We will plan for shockwave lithotripsy once his pain is under control later date. [facility] Medical History (Updated 10/31/21 @ 18:[address] Luis Guerrero MD) Anxiety Arthritis Depression Diabetes mellitus Follicular lymphoma Headache Hearing problem Hyperlipidemia Hypertension Kidney stones Right axilla lymph node removal Sleep apnea Home Medications clonazepam 0.5 mg PO BID PRN 08/21/18 [History Last Taken 08/20/18] glyburide 10 mg PO BID 08/21/18 [History Last Taken 08/20/18] mirtazapine 15 mg PO QHS 08/21/18 [History Last Taken 08/20/18] oxycodone 10 mg PO DAILY PRN PRN 08/21/18 [History Last Taken Unknown] Lantus Solostar U-100 Insulin 10 units SUBCUT DAILY #2 pen 08/23/18 [Rx Last Taken Unknown] ciprofloxacin HCl 500 mg PO BID #10 tab 10/31/21 [Rx Last Taken Unknown] clomipramine 25 mg PO QHS 10/31/21 [History Last Taken Unknown] oxycodone-acetaminophen 1 tab PO Q6H PRN 7 Days #14 tab 10/31/21 [Rx Last Taken Unknown] tamsulosin 0.4 mg PO DAILY 10/31/21 [History Last Taken Unknown] Allergy/AdvReac Type Severity Reaction Status Date / Time No Known Allergies Allergy Verified 10/31/21 12:48 Family History Mother Heart disease Hypertension Asthma Arthritis Father Prostate cancer Hypertension Hyperlipidemia Diabetes COPD (chronic obstructive pulmonary disease) Asthma Arthritis Surgical History History of lithotripsy Social History Smoking Status: Current every day smoker tobacco type: e-cigarettes Vital Signs Vital Signs Vital Signs: 10/31/21 12:48 10/31/21 17:17 Temperature 98.3 F 99.0 F Temperature Source Temporal Oral Pulse Rate 102 H 98 Respiratory Rate 18 18 Blood Pressure 134/86 H 117/65 Blood Pressure Mean 102 82 Pulse Ox 96 96 Oxygen Delivery Method Room Air Weight Weight: 82.781 kg Body Mass Index (BMI) 26.2 Results Lab / Micro Data Result Diagrams: 10/31/21 13:43 10/31/21 12:59 Labs: Laboratory Results - last 24 hr 10/31/21 12:59: WBC Cancelled, Corrected WBC Cancelled, RBC Cancelled, Hgb Cancelled, Hct Cancelled, MCV Cancelled, MCH Cancelled, MCHC Cancelled, RDW Std Deviation Cancelled, RDW Coeff of Slick Cancelled, Plt Count Cancelled, MPV Cancelled, Immature Gran % (Auto) Cancelled, Neut % (Auto) Cancelled, Lymph % (Auto) Cancelled, Luce % (Auto) Cancelled, Eos % (Auto) Cancelled, Baso % (Auto) Cancelled, Absolute Neuts (auto) Cancelled, Absolute Lymphs (auto) Cancelled, Total Counted Cancelled, Neutrophils % (Manual) Cancelled, Band Neutrophils % Cancelled, Lymphocytes % (Manual) Cancelled, Monocytes % (Manual) Cancelled, Eosinophils % (Manual) Cancelled, Basophils % (Manual) Cancelled, Metamyelocytes % Cancelled, Myelocytes % Cancelled, Promyelocytes % Cancelled, Blast Cells % Cancelled, Plasma Cell % (Manual) Cancelled, Other Cells % Cancelled, Nucleated RBC % Cancelled, Nucleated RBCs/100 WBC Cancelled, Differential Comment Cancelled, Diff Path Review Cancelled, Hypersegmented Neuts Cancelled, Atypical Lymphocytes Cancelled, Reactive Lymphocytes Cancelled, Smudge Cells Cancelled, Toxic Granulation Cancelled, Toxic Vacuolation Cancelled, Dohle Bodies Cancelled, Saeid Rods Cancelled, Platelet Estimate Cancelled, Plt Morphology Comment Cancelled, RBC Morphology Cancelled, Polychromasia Cancelled, Hypochromasia Cancelled, Poikilocytosis Cancelled, Basophilic Stippling Cancelled, Anisocytosis Cancelled, Microcytosis Cancelled, Macrocytosis Cancelled, Spherocytes Cancelled, Sickle Cells Cancelled, Target Cells Cancelled, Tear Drop Cells Cancelled, Ovalocytes Cancelled, Stomatocytes Cancelled, Gupta-[place] Bodies Cancelled, Debora Cells Cancelled, Bite Cells Cancelled, Crenated Cell Cancelled, Acanthocytes (Spur) Cancelled, Rouleaux Cancelled, Schistocytes Cancelled 10/31/21 12:59: Sodium 137, Potassium 4.2, Chloride 100, Carbon Dioxide 29.0, Anion Gap 8, BUN 18, Creatinine 1.93 H, Estim Creat Clear Calc 49.91, Est GFR (MDRD) Af Amer 49 L, Est GFR (MDRD) Non-Af 40 L, BUN/Creatinine Ratio 9.3 L, Glucose 201 H, Calcium 9.8, Total Bilirubin 2.20 H, AST 23, ALT 24, Alkaline Phosphatase 78, Total Protein 8.0, Albumin 4.1, Globulin 3.9, Albumin/Globulin Ratio 1.1 10/31/21 13:43: WBC 16.3 H, RBC 4.56 L, Hgb 13.5, Hct 39.1 L, MCV 85.7, MCH 29.6, MCHC 34.5, RDW Std Deviation 39.9, RDW Coeff of Slick 12.8, Plt Count 199, MPV 10.2, Immature Gran % (Auto) 0.400, Neut % (Auto) 89.4 H, Lymph % (Auto) 4.2 L, Luce % (Auto) 5.8, Eos % (Auto) 0.0, Baso % (Auto) 0.2, Absolute Neuts (auto) 14.5 H, Absolute Lymphs (auto) 0.68 L, Nucleated RBC % 0 10/31/21 14:57: Urine Color Yellow, Urine Clarity Clear, Urine pH 5.0, Ur Specific [place] 1.025, Urine Protein Negative, Urine Glucose (UA) 1000 H, Urine Ketones 150 A*, Urine Occult Blood 10 H, Urine Nitrite Negative, Urine Bilirubin Negative, Urine Urobilinogen Normal, Ur Leukocyte Esterase Negative, Urine RBC 0 SEEN, Urine WBC 0 SEEN, Ur Squamous Epith Cells 0 SEEN, Urine Bacteria 0 SEEN, Urine Mucus 0 SEEN Radiology Impression Abdomen/Pelvis CT 10/31/21 13:57 IMPRESSION: Obstruction of the right collecting system due to a 3 mm stone in the mid right ureter. There is right-sided hydronephrosis and hydroureter. Individualized dose optimization techniques were used for this CT. at 1446 Reported and signed by: Artemio Ramirez MD Electronically Signed: Artemio Ramirez MD at 14:45 EDT ,
--- NOTE | 2021-10-31 18:17 | PCM.DC ---
Discharge Instructions Diet Discharge Diet: No restrictions Activity Discharge Activity: Return to Normal Activity and May Not Drive (while taking narcotic pain medications.) Dressing / Incision Call your doctor if you observe: Fever of 101 or Higher Follow Up Care Please Follow Up With: Luis Guerrero MD When: Call [phone] to get set up to do shockwave treatment to the stone Test Results: Test results from this visit will be discussed in further detail at your follow-up appointment, if applicable. Discharge Plan Admission Primary Reason for Your Visit: kidney stone Attending Provider: Luis Guerrero Primary Care Provider: Dagoberto Zarco Discharge Orders/Prescriptions Prescriptions: New oxycodone-acetaminophen 5-325 mg tablet 1 tab PO Q6H PRN (Reason: pain) 7 Days Qty: 14 RF: 0 ciprofloxacin HCl 500 mg tablet 500 mg PO BID Qty: 10 RF: 0 Continued glyburide 5 MG tablet 10 mg PO BID RF: 0 clonazepam 0.5 MG tablet 0.5 mg PO BID PRN (Reason: Anxiety) RF: 0 mirtazapine 15 MG tablet 15 mg PO QHS RF: 0 oxycodone 10 MG/0.5 ML concentrate 10 mg PO DAILY PRN PRN (Reason: Pain) RF: 0 Lantus Solostar U-100 Insulin 100 UNITS/ML insulin pen 10 units subcut DAILY Qty: 2 RF: 0 tamsulosin 0.4 mg capsule 0.4 mg PO DAILY RF: 0 clomipramine 25 mg capsule 25 mg PO QHS RF: 0 Referrals / Follow Up: Luis Guerrero MD [STAFF PHYSICIAN] - Dagoberto Zarco DO [Primary Care Provider] - Disposition Disposition (needs filled in before D/C Order can be placed): Home, Self Care
--- NOTE | 2021-10-31 18:18 | OP.PCM_ITS ---
Report of Operation Date of Procedure: 10/31/21 Pre-Operative Diagnosis: right ureteral calculi Post-Operative Diagnosis: same Surgery/Procedure Performed:: Cystoscopy and right stent placement with retrogrades Description of Surgical Findings:: Patient was taken back to the operating room after induction of general anesthesia, the patient was placed in dorsolithotomy position. The urethra and genitals were prepped and draped in usual sterile fashion. Using a 21 M[place]gas[place] rigid cystourethroscope the entire length of the urethra was normal then went into the bladder. Identified the trigone the left and right ureteral orifice. I then cannulated the Right orifice and advanced a wire up into the kidney. I then backloaded a 5 M[place]gas[place] open ended catheter over the wire and injected contrast to delineate the anatomy. After the retrograde was performed I then used fluoroscopic images and guidance to advanced a wire up into the kidney and over the 0.038 glidewire I advanced a 6 M[place]gas[place] by 26 cm double pigtail stent. I then pulled the 0.038 Glidewire off and the stent coiled in the kidney bladder good position. The bladder was then drained. We confirmed the position of the stent by fluoroscopy. Patient anesthetic was reversed and was taken back to the PACU in good condition. Surgeon: tommy Type of Anesthesia: General Drains: stent on right Admit VTE Documentation VTE Present on Admission: No VTE Mechan Device Prophylaxis: SCD's VTE Pharm Prophylaxis ordered?: No
[2021-10-31] MEDS: Lactated Ringers 1,000 ML 100 ML IV ×2 (18:53→23:30)
[2021-10-31] MEDS: HYDROcodone Bitartrate/Apap 5/325 Tablet PO (21:00)
[2021-10-31] MEDS: Mirtazapine 15 MG Tablet PO (23:25)
[2021-10-31] MEDS: Tamsulosin HCl 0.4 MG Capsule PO (23:26)
[2021-10-31] MEDS: Ciprofloxacin 500 MG Tablet PO (23:26)
[2021-10-31] MEDS: Insulin Glargine-YFGN 100 UNIT/ML Pen 10 UNIT SC (23:28)
[2021-10-31 23:31] LABS: Bedside Glucose 252 mg/dL (74-106)
[2021-11-01 03:39] VITALS: BP 121/64; PULSE 61; RESP 16; TEMP 36.6; O2SAT 97
[2021-11-01 06:50] VITALS: BP 113/72; PULSE 56; RESP 16; TEMP 36.4; O2SAT 94
[2021-11-01 08:17] VITALS: BP 126/72; PULSE 68; RESP 16; TEMP 36.8; O2SAT 97
[2021-11-01] MEDS: Ciprofloxacin 500 MG Tablet PO (09:59)
--- NOTE | 2021-11-01 11:00 | PCM.PN.BLA ---
Progress Note Status post stent placement for obstructing stone he is doing well fevers resolved pain is under control we discussed what to expect with the stent my office will get him set up for outpatient surgery to laser the stone he will be discharged home today.
--- NOTE | 2021-11-01 11:12 | EKG12_ITS ---
Test Reason : Blood Pressure : / mmHG Vent. Rate : 069 BPM Atrial Rate : 069 BPM P-R Int : 142 ms QRS Dur : 108 ms QT Int : 390 ms P-R-T Axes : 027 029 039 degrees QTc Int : 417 ms Sinus rhythm with marked sinus arrhythmia Otherwise normal ECG When compared with ECG of 21-AUG-2018 13:13, T wave inversion no longer evident in Inferior leads Confirmed by DYANA ONEILL, ALISE ([id number]), marketing editor GEORGIANA GARCÍA ([id number]) on 11/03/2021 10:42:24 AM Referred By: SHIRAZ Confirmed By:ALISE TURPIN MD
[2021-11-01 12:04] VITALS: BP 126/72; PULSE 68; RESP 18; TEMP 36.8; O2SAT 97
[2021-11-01 21:41] LABS: Bedside Glucose 228 mg/dL (74-106)
== END 2021-11-01 13:18 | disposition home or self-care (01) ==
LOC: ED 16:34 → SDC 17:20 → MS3 18:10 → SDC 21:44 → MS3 11-01 11:39
PROVIDERS: Admitting Provider Urology; Emergency Provider Student in an Organized Health Care Education/Training Program; PCP Family Medicine; Visit Provider Urology
PROC: (CPT 52332; principal; 2021-10-31 18:30)
DX: N13.2 Hydronephrosis with renal and ureteral calculous obstruction (principal); N17.9 Acute kidney failure, unspecified; E11.9 Type 2 diabetes mellitus without complications; Z79.4 Long term (current) use of insulin; I10 Essential (primary) hypertension; E78.5 Hyperlipidemia, unspecified; F17.290 Nicotine dependence, other tobacco product, uncomplicated; M19.90 Unspecified osteoarthritis, unspecified site; F32.A Depression, unspecified; F41.9 Anxiety disorder, unspecified; G47.30 Sleep apnea, unspecified; Z79.899 Other long term (current) drug therapy
CPT/HCPCS: 52332; 00910; 74176; 76000; 80053; 81001; 82962; 85025; 93005; 96361; 96374; 96375; 96376; 99218; 99285; 99406; J7030; J7120; A4216; C1769; C2617; G0378; J2405

== ENCOUNTER → 2023-03-01 | Outpatient (CLI) | payer MEDICARE, MEDICAID, SELFPAY ==
[2023-03-01 12:21] LABS: Absolute Neutrophil Count 3.7 X10^3/uL (2.0-7.7); Basophil# 0.05 X10^3/uL; Basophil% 0.8 % (0-1); Eosinophil# 0.18 X10^3/uL; Eosinophils% 2.9 % (0-5); Hematocrit 44.4 % (40-54); Hemoglobin 14.8 g/dL (13.0-16.5); Lymphocyte % 30.2 % (19-41); Mean Corp Hgb Conc 33.3 g/dL (32-36); Mean Corpuscular Volume 87.1 fL (80-94); Mean Platelet Vol. 10.7 fl (6.2-12.0); Monocyte# 0.46 X10^3/uL; Monocyte% 7.3 % (0-10); NRBC Flagged by Analyzer 0 % (0-5); Neutrophil # 3.69 X10^3/uL (2.7-7.7); Neutrophil % 58.5 % (47-70); Platelet Count 267 K/mm3 (150-450); RBC Distribution Width CV 13.4 % (11.6-14.6); RBC Distribution Width SD 42.3 fl (35.1-43.9); White Blood Count 6.3 K/mm3 (4.4-11.0)
[2023-03-01 12:50] LABS: AST(SGOT) 19 U/L (15-37); Alanine Aminotransfer ALT/SGPT 28 U/L (16-61); Albumin, Serum 4.1 g/dL (3.2-5.0); Alkaline Phosphatase 70 U/L (45-117); Anion Gap 4 (5-15); BUN 20 mg/dL (7-18); BUN/Creat Ratio 19.4 RATIO (10-20); Calcium,Total 9.4 mg/dL (8.5-10.1); Chloride 105 mmol/L (98-107); Cholesterol 229 mg/dL (200); Creatinine, Serum 1.03 mg/dL (0.70-1.30); EST Glomerular Filtration Rate 82 mL/min (>60); Est Glom Filt Rate - Afr Amer 99 mL/min (>60); Globulin 4.1 g/dL (2.2-4.2); Glucose 177 mg/dL (74-106); High Density Lipoprotein 29 mg/dL; Potassium 4.3 mmol/L (3.5-5.1); Protein, Total 8.2 g/dL (6.4-8.2); Sodium Level 139 mmol/L (136-145); Triglycerides 758 mg/dL
[2023-03-01 13:14] LABS: Microalbumin,Random Urine 39.9 mg/L (NO RANGE EST.); Microalbumin:Creatinine Ratio 17.1 mg/g CRE (<30 mg/g CRE)
== END | disposition home or self-care (01) ==
PROVIDERS: PCP Family Medicine; Referring Provider Family Medicine; Visit Provider Family Medicine
DX: E11.9 Type 2 diabetes mellitus without complications (principal); R80.9 Proteinuria, unspecified; Z85.72 Personal history of non-Hodgkin lymphomas
CPT/HCPCS: 36415; 80053; 80061; 82043; 82570; 85025

== ENCOUNTER → 2023-05-31 | Outpatient (CLI) | payer MEDICARE, MEDICAID, SELFPAY ==
[2023-05-31 13:12] LABS: LDH 153 U/L (87-241); T4 Free Direct 1.01 ng/dL (0.76-1.46)
== END | disposition home or self-care (01) ==
LOC: BFHLAB 09:32
PROVIDERS: PCP Family Medicine; Visit Provider Family Medicine
DX: E01.0 Iodine-deficiency related diffuse (endemic) goiter (principal); Z85.72 Personal history of non-Hodgkin lymphomas
CPT/HCPCS: 36415; 83615; 84439; 84443

== ENCOUNTER → 2023-06-04 | Outpatient (CLI) | payer MEDICARE, SELFPAY ==
--- NOTE | 2023-06-04 07:43 | US_ITS ---
INDICATION: NODULE EXAMINATION: Ultrasound US Thyroid (eg thyroid, parathyroid, parotid) TECHNIQUE: Sherman scale and color doppler imaging was performed of the thyroid gland. COMPARISON: FINDINGS: RIGHT THYROID LOBE: 5.3 x 2.1 x 2.0 cm. Homogeneous echotexture with normal vascularity. [No thyroid nodules are present. LEFT THYROID LOBE: 4.5 x 1.5 x 1.47. Homogeneous echotexture with normal vascularity. [No thyroid nodules are present. ISTHMUS: 0.3 cm. No thyroid nodules are present. Lateral to the right lobe of thyroid gland lymph node is visualized 0.8 x 0.9 x 0.5 cm. Lateral to the left lobe of the thyroid gland there is a lymph node 0.9 x 0.8 x 0.5 cm. The aforementioned lymph nodes are consistent with benign reactive lymph nodes. US/Thyroid IMPRESSION: Negative thyroid ultrasound examination. T RADS category 1 negative To the right and to the left of the thyroid gland there is some pathologic bilateral lymph nodes with fatty chu consistent with benign reactive lymph nodes. Electronically Signed: Dagoberto Hebert MD at 11:56 EDT ,
== END | disposition home or self-care (01) ==
LOC: US 07:40
PROVIDERS: PCP Family Medicine; Visit Provider Family Medicine
DX: E04.1 Nontoxic single thyroid nodule (principal)
CPT/HCPCS: 76536

== ENCOUNTER → 2023-11-22 | Outpatient (CLI) | payer MEDICARE, SELFPAY ==
[2023-11-22 15:20] LABS: ALB/GLOB Ratio 1.1 RATIO (0.9-2.4); AST(SGOT) 24 U/L (15-37); Alanine Aminotransfer ALT/SGPT 31 U/L (16-61); Alkaline Phosphatase 87 U/L (45-117); Anion Gap 9 (5-15); BUN 18 mg/dL (7-18); BUN/Creat Ratio 17.6 RATIO (10-20); Calcium,Total 9.2 mg/dL (8.5-10.1); Chloride 103 mmol/L (98-107); Cholesterol 143 mg/dL (200); Creatinine, Serum 1.02 mg/dL (0.70-1.30); EST Glomerular Filtration Rate 83 mL/min (>60); Est Glom Filt Rate - Afr Amer 100 mL/min (>60); Globulin 3.8 g/dL (2.2-4.2); Glucose 279 mg/dL (74-106); High Density Lipoprotein 31 mg/dL; Potassium 4.2 mmol/L (3.5-5.1); Protein, Total 7.8 g/dL (6.4-8.2); Sodium Level 138 mmol/L (136-145); Triglycerides 440 mg/dL
[2023-11-22 15:54] LABS: Microalbumin,Random Urine 27.8 mg/L (NO RANGE EST.); Microalbumin:Creatinine Ratio 18.9 mg/g CRE (<30 mg/g CRE)
== END | disposition home or self-care (01) ==
LOC: BFHLAB 11:09
PROVIDERS: PCP Family Medicine; Visit Provider Family Medicine
DX: E11.65 Type 2 diabetes mellitus with hyperglycemia (principal); E78.5 Hyperlipidemia, unspecified
CPT/HCPCS: 36415; 80053; 80061; 82043; 82570

== ENCOUNTER → 2024-06-01 | Outpatient (CLI) | payer MEDICARE, SELFPAY ==
[2024-06-01 12:14] LABS: Absolute Lymphocyte Count 1.38 X10^3/uL (0.83-4.51); Basophil# 0.05 X10^3/uL; Basophil% 0.7 % (0-1); Eosinophil# 0.17 X10^3/uL; Eosinophils% 2.4 % (0-5); Hematocrit 44.3 % (40-54); Lymphocyte # 1.38 X10^3/ul (0.83-4.51); Lymphocyte % 19.3 % (19-41); Mean Corp Hgb Conc 33.9 g/dL (32-36); Mean Corpuscular Hgb 28.8 pg (27.0-32.0); Mean Platelet Vol. 10.8 fl (6.2-12.0); Monocyte# 0.56 X10^3/uL; Monocyte% 7.8 % (0-10); NRBC Flagged by Analyzer 0 % (0-5); Neutrophil # 4.97 X10^3/uL (2.7-7.7); Neutrophil % 69.5 % (47-70); Platelet Count 271 K/mm3 (150-450); RBC Distribution Width CV 12.9 % (11.6-14.6); RBC Distribution Width SD 39.4 fl (35.1-43.9); Red Blood Count 5.21 M/mm3 (4.6-6.2); White Blood Count 7.2 K/mm3 (4.4-11.0)
[2024-06-01 13:07] LABS: Hemoglobin A1c 9.4 % (3.8-5.6)
[2024-06-01 13:13] LABS: AST(SGOT) 11 U/L (15-37); Alanine Aminotransfer ALT/SGPT 23 U/L (16-61); Albumin, Serum 3.9 g/dL (3.2-5.0); Alkaline Phosphatase 79 U/L (45-117); Anion Gap 9 (5-15); BUN 23 mg/dL (7-18); BUN/Creat Ratio 17.2 RATIO (10-20); Calcium,Total 9.9 mg/dL (8.5-10.1); Chloride 106 mmol/L (98-107); Cholesterol 194 mg/dL (200); Creatinine, Serum 1.34 mg/dL (0.70-1.30); EST Glomerular Filtration Rate 60 mL/min (>60); Est Glom Filt Rate - Afr Amer 73 mL/min (>60); Globulin 3.8 g/dL (2.2-4.2); Glucose 241 mg/dL (74-106); High Density Lipoprotein 26 mg/dL; Protein, Total 7.7 g/dL (6.4-8.2); Sodium Level 136 mmol/L (136-145); Triglycerides 731 mg/dL
[2024-06-02 04:07] LABS: LDL, Direct 120295 80 mg/dL (0-99)
== END | disposition home or self-care (01) ==
LOC: BFHLAB 10:33
PROVIDERS: PCP Family Medicine; Visit Provider Family Medicine
DX: E11.65 Type 2 diabetes mellitus with hyperglycemia (principal); E78.5 Hyperlipidemia, unspecified
CPT/HCPCS: 36415; 80053; 80061; 83036; 83721; 85025